=== PATIENT | male | born 1960 | race Hispanic/Latino ===

== ENCOUNTER 2021-05-20 06:04 | Day surgery (SDC) | payer BC ==
[2021-05-14 09:49] LABS: BASOPHILS % (AUTO) 0.8 % (0.0-5.0); EOSINOPHILS % (AUTO) 2.2 % (0.0-8.0); HEMATOCRIT 43.3 % (42-54); LYMPHOCYTES % (AUTO) 17.3 % (21.0-51.0); MEAN CORPUSCULAR HGB CONC 33.3 g/dL (32.0-36.0); MEAN CORPUSCULAR VOLUME 93.3 fL (79-99); MONOCYTES % (AUTO) 8.9 % (3.0-13.0); NEUTROPHILS % (AUTO) 70.5 % (40.0-77.0); PLATELET COUNT (AUTO) 339 K/uL (130-400); RED BLOOD CELL COUNT(AUTO) 4.64 MIL/uL (4.50-6.20); RED CELL DISTRIBUTION WIDTH 12.8 % (11.0-15.5); WHITE BLOOD COUNT (AUTO) 10.9 K/uL (4.8-10.8)
[2021-05-14 09:56] LABS: APPEARANCE,URINE Clear (CLEAR); BILIRUBIN,URINE Negative (NEGATIVE); COLOR,URINE Yellow (YELLOW); GLUCOSE, URINE (UA) Negative (NEGATIVE); KETONES,URINE Negative (NEGATIVE); LEUKOCYTE ESTERASE ,URINE Negative (NEGATIVE); NITRATE,URINE Negative (NEGATIVE); OCCULT BLOOD,URINE Moderate (NEGATIVE); PH,URINE 6.5 (5.0-8.0); PROTEIN,URINE Negative (NEGATIVE); UROBILINOGEN,URINE 0.2 mg/dL (0.2-1.0)
[2021-05-14 10:06] LABS: BACTERIA,URINE Rare /HPF (None Seen); HYALINE CASTS, URINE 0-1 /LPF (0-1 /LPF); RBC,URINE 0-1 /HPF (0-1); SQUAMOUS EPITHELIAL CELL,UR None Seen /HPF (0-2); WBC,URINE 0-1 /HPF (0-1)
[2021-05-14 10:08] LABS: INR 1.09 (0.85-1.15); PROTHROMBIN TIME 11.8 SEC (9.6-11.6)
[2021-05-14 10:09] LABS: PARTIAL THROMBOPLASTIN TIME 29.1 SEC (26.3-35.5)
[2021-05-14 10:10] LABS: CREATININE 1.1 mg/dL (0.5-1.5); POTASSIUM 4.8 mmol/L (3.5-5.1)
[2021-05-19 11:03] VITALS: BP 96/69
[~2021-05-20] VITALS: Ht 182.9 cm; Wt 95.7 kg
[2021-05-20] VITALS (11 sets, daily range): BP systolic 107–129; BP diastolic 75–87
[~2021-05-20 06:04] MED LIST: AEC81 PO; ATOR40TA69 PO; FURO20TA4 PO; LISI2.5T13 PO; METF-444 PO; TAMS-1 PO
[2021-05-20] MEDS ORDERED: 0.9%NACL 1000ML 1,000 ML IV ONE (06:19)
[2021-05-20] MEDS ORDERED: BIVALIRUDIN 250 MG/VIAL IV ONE (07:12)
[2021-05-20] MEDS ORDERED: HEPARIN 10,000 UNIT/10ML (1,000 UNIT/ML) VIAL ONE (07:12)
[2021-05-20] MEDS ORDERED: NITROGLYCERIN 2 MG VIAL IV ONE (07:12)
[2021-05-20] MEDS ORDERED: IOHEXOL-350 50ML VIAL IV ONE (07:13)
[2021-05-20] MEDS ORDERED: LIDOCAINE HCL 400MG/20ML VIAL ONE (07:13)
[2021-05-20] MEDS ORDERED: IOHEXOL 350 MG/ML 100ML INFUS..BTL IV ONE (07:13)
[2021-05-20] MEDS ORDERED: MIDAZOLAM HCL 1 MG/ML 2ML VIAL ONE (07:45)
[2021-05-20] MEDS ORDERED: FENTANYL CITRATE PF 50 MCG/1 ML 2ML VIAL ONE (07:45)
[2021-05-20] MEDS ORDERED: 0.9%NACL 1000ML 1,000 ML IV SCH (10:00)
[2021-05-20 13:55] LABS: HEMOGLOBIN A1C 7.1 % (4.0-6.0)
[2021-05-20 14:00] LABS: CHOLESTEROL 114 mg/dL (<200); HDL CHOLESTEROL 43 mg/dL (29-71); LDL DIRECT 51 mg/dL (0-99); TRIGLYCERIDES 63 mg/dL (30-200)
[2021-05-20 14:43] LABS: ABG BASE EXCESS -0.8 mmol/L (-2.0-3.0); ABG HCO3 23.5 mmol/L (21.0-28.0); ABG OXYGEN SATURATION 95.8 % (95.0-99.0); ABG PCO2 38 mmHg (35-48)
[2021-05-27] MEDS ORDERED: BICA50TA7 PO (16:31)
== END 2021-05-20 15:15 | disposition home or self-care (01) ==
LOC: DAH 06:04
PROVIDERS: ATTEND Internal Medicine Cardiovascular Disease
DX: I35.0 Nonrheumatic aortic (valve) stenosis (principal); I25.10 Atherosclerotic heart disease of native coronary artery without angina pectoris; I42.8 Other cardiomyopathies; E11.9 Type 2 diabetes mellitus without complications; E78.00 Pure hypercholesterolemia, unspecified; F17.210 Nicotine dependence, cigarettes, uncomplicated; Z90.89 Acquired absence of other organs; Z98.890 Other specified postprocedural states; Z80.42 Family history of malignant neoplasm of prostate; Z80.3 Family history of malignant neoplasm of breast; Z82.49 Family history of ischemic heart disease and other diseases of the circulatory system; Z85.46 Personal history of malignant neoplasm of prostate; Z79.01 Long term (current) use of anticoagulants; Z79.82 Long term (current) use of aspirin; Z79.84 Long term (current) use of oral hypoglycemic drugs; Z79.899 Other long term (current) drug therapy; Z95.2 Presence of prosthetic heart valve
CPT/HCPCS: 36415 ×2; 36600; 71045; 80048; 80061; 81001; 82803; 82948 ×2; 83036; 83880; 85025; 85610; 85730; 86850; 86900; 86901; 93005; 93456; 93880; 94010; A4215; A4216; A4221; A4222; A4223 ×3; A4606; A4663; C1760; C1769 ×2; C1893; C1894 ×3; J1644 ×3; J2250; J3010; J3490 ×2; J7030; Q9965; Q9967 ×2; 96360; 96361; 99156; 99157; J0583

== ENCOUNTER 2021-05-28 05:53 | Inpatient (IN) | payer BC ==
[2021-05-27 16:06] VITALS: BP 109/83
[~2021-05-28] VITALS: Ht 182.9 cm; Wt 96.6 kg
[2021-05-28] VITALS (42 sets, daily range): BP systolic 79–162; BP diastolic 46–86
[~2021-05-28 05:53] MED LIST changes: +BICA50TA7 PO
[2021-05-28] MEDS ORDERED: METOPROLOL TARTRATE 25 MG TAB PO ONE (06:00)
[2021-05-28] MEDS ORDERED: 0.9%NACL 1000ML 1,000 ML IV ONE (06:14)
[2021-05-28 06:35] LABS: BASOPHILS % (AUTO) 0.9 % (0.0-5.0); EOSINOPHILS % (AUTO) 6.4 % (0.0-8.0); HEMATOCRIT 35.3 % (42-54); LYMPHOCYTES % (AUTO) 28.1 % (21.0-51.0); MEAN CORPUSCULAR HEMOGLOBIN 31.5 pg (27.0-33.0); MEAN CORPUSCULAR HGB CONC 33.1 g/dL (32.0-36.0); MEAN CORPUSCULAR VOLUME 95.1 fL (79-99); MONOCYTES % (AUTO) 11.9 % (3.0-13.0); NEUTROPHILS % (AUTO) 52.3 % (40.0-77.0); PLATELET COUNT (AUTO) 279 K/uL (130-400); RED BLOOD CELL COUNT(AUTO) 3.71 MIL/uL (4.50-6.20); RED CELL DISTRIBUTION WIDTH 13.2 % (11.0-15.5); WHITE BLOOD COUNT (AUTO) 8.9 K/uL (4.8-10.8)
[2021-05-28 06:55] LABS: PROTHROMBIN TIME 10.9 SEC (9.6-11.6)
[2021-05-28 06:57] LABS: PARTIAL THROMBOPLASTIN TIME 26.3 SEC (26.3-35.5)
[2021-05-28 07:00] LABS: ALBUMIN 4.1 g/dL (3.5-5.0); BILIRUBIN,TOTAL 0.5 mg/dL (0.2-1.0); CREATININE 0.9 mg/dL (0.5-1.5); POTASSIUM 4.8 mmol/L (3.5-5.1); TOTAL PROTEIN, SERUM 7.5 g/dL (6.0-8.3)
[2021-05-28] MEDS ORDERED: EPINEPHRINE PF 1MG AMP 10 MG in 0.9% NACL 250ML 240 ML IV PRN (07:00)
[2021-05-28] MEDS ORDERED: AMINOCAPROIC ACID 5,000MG VIAL 15,000 MG in 0.9% NACL 500ML IV.SOLN 420 ML IV PRN (07:00)
[2021-05-28] MEDS ORDERED: NOREPINEPHRINE BITARTRATE 8 MG in DEXTROSE 5%-WATER 250 ML IV PRN (07:00)
[2021-05-28] MEDS: CEFAZOLIN SODIUM 1 GM VIAL IVP SCH ×2 (08:41→10:00)
[2021-05-28] MEDS ORDERED: DELNIDO FORMULA 1 BAG IV ONE (09:42)
[2021-05-28] MEDS ORDERED: NOREPINEPHRINE BITARTRATE 1 MG/1 ML ML IV ONE ×2 (09:45→15:52)
[2021-05-28] MEDS ORDERED: EPINEPHRINE PF 1MG AMP ONE (09:45)
[2021-05-28] MEDS ORDERED: LIDOCAINE PF 100MG/5ML (2%) SYRINGE 5ML ONE ×3 (09:45→11:46)
[2021-05-28] MEDS ORDERED: ESMOLOL HCL 10 MG/ML 10 ML VIAL ONE (09:45)
[2021-05-28] MEDS ORDERED: HEPARIN 10,000 UNIT/10ML (1,000 UNIT/ML) VIAL ONE (09:45)
[2021-05-28] MEDS ORDERED: SODIUM BICARB 50MEQ 50ML VIAL 150 ML ONE (09:45)
[2021-05-28] MEDS ORDERED: AMINOCAPROIC ACID 5,000MG VIAL ONE (09:45)
[2021-05-28] MEDS ORDERED: PROTAMINE SULFATE 10 MG/ML 25ML VIAL IV ONE (09:45)
[2021-05-28] MEDS ORDERED: FENTANYL CITRATE PF 50 MCG/1 ML 20ML VIAL IJ ONE (09:46)
[2021-05-28] MEDS ORDERED: MIDAZOLAM HCL 1 MG/ML 2ML VIAL ONE (09:46)
[2021-05-28] MEDS ORDERED: PROPOFOL 10 MG/ML 20ML VIAL IV ONE (09:46)
[2021-05-28] MEDS ORDERED: ROCURONIUM 10MG/1ML SYR 10 MG/ML ML ONE (09:46)
[2021-05-28] MEDS ORDERED: KETAMINE 50MG/ML SYRINGE 50 MG/ML DISP.SYRIN IV ONE (09:50)
[2021-05-28 10:27] LABS: ABG BASE EXCESS 1.6 mmol/L (-2.0-3.0); ABG HCO3 24.6 mmol/L (21.0-28.0); ABG OXYGEN SATURATION 99.4 % (95.0-99.0); ABG PCO2 33 mmHg (35-48)
[2021-05-28] MEDS ORDERED: OCTYL 2-CYANOACRYLATE 1 EACH TP ONE (10:29)
[2021-05-28] MEDS ORDERED: PAPAVERINE HCL 30 MG/ML 2ML VIAL ONE (10:29)
[2021-05-28] MEDS ORDERED: CEFAZOLIN SODIUM 1 GM VIAL ONE ×2 (10:29→13:53)
[2021-05-28 12:19] LABS: ABG BASE EXCESS -6.8 mmol/L (-2.0-3.0); ABG HCO3 21.1 mmol/L (21.0-28.0); ABG OXYGEN SATURATION 97.9 % (95.0-99.0); ABG PCO2 55 mmHg (35-48)
[2021-05-28 12:50] LABS: ABG BASE EXCESS -2.8 mmol/L (-2.0-3.0); ABG HCO3 21.6 mmol/L (21.0-28.0); ABG OXYGEN SATURATION 98.7 % (95.0-99.0); ABG PCO2 36 mmHg (35-48)
[2021-05-28] MEDS ORDERED: GLYCOPYRROLATE 1 MG/5 ML SYRINGE ONE (13:08)
[2021-05-28 13:15] LABS: ABG BASE EXCESS -4.4 mmol/L (-2.0-3.0); ABG HCO3 20.3 mmol/L (21.0-28.0); ABG OXYGEN SATURATION 98.7 % (95.0-99.0); ABG PCO2 36 mmHg (35-48)
[2021-05-28] MEDS ORDERED: EPHEDRINE SULFATE 50 MG/ML AMPULE ONE (13:15)
[2021-05-28] MEDS ORDERED: VASOPRESSIN 20 UNITS/ML 1ML VIAL ONE (13:20)
[2021-05-28] MEDS ORDERED: ONDANSETRON 4MG INJ IV PRN (13:30)
[2021-05-28] MEDS ORDERED: PROPOFOL 1000 MG/100 ML 100 ML IV PRN (13:30)
[2021-05-28] MEDS ORDERED: EPINEPHRINE PF 1MG AMP 10 MG in DEXTROSE 5%-WATER 250 ML IV PRN (13:30)
[2021-05-28] MEDS ORDERED: MORPHINE 4 MG SYG IV PRN (13:30)
[2021-05-28] MEDS ORDERED: 0.9%NACL 1000ML 1,000 ML IV SCH (13:30)
[2021-05-28] MEDS ORDERED: ALBUMIN (HUMAN) 5% 250 ML IV PRN (13:30)
[2021-05-28] MEDS ORDERED: MORPHINE 2 MG SYG IV PRN (13:30)
[2021-05-28] MEDS ORDERED: AMINOCAPROIC ACID 5,000MG VIAL 15,000 MG in 0.9% NACL 250ML 250 ML IV SCH (13:30)
[2021-05-28] MEDS ORDERED: TRAMADOL HCL 50 MG TABLET PO PRN (13:30)
[2021-05-28] MEDS ORDERED: NITROGLYCERIN 50MG/D5W 250ML 250 BOT IV SCH (13:30)
[2021-05-28] MEDS ORDERED: 0.9%NACL 10ML VIAL IVP PRN (13:30)
[2021-05-28] MEDS ORDERED: DEXTROSE 50%-WATER 50 ML DISP.SYRIN IV PRN (13:30)
[2021-05-28] MEDS ORDERED: INSULIN REGULAR, HUMAN 3ML 100 UNIT in 0.9%NACL 100ML 99 ML IV SCH ×2 (13:30)
[2021-05-28] MEDS ORDERED: ACETAMINOPHEN 650 MG SUPPOSITORY RC PRN (13:30)
[2021-05-28] MEDS ORDERED: SODIUM BICARB 50MEQ 50ML VIAL IV PRN (13:30)
[2021-05-28] MEDS ORDERED: GLUCAGON 1MG KIT 1 MG ML IM PRN (13:30)
[2021-05-28] MEDS ORDERED: POTASSIUM PHOS 15 mMOL+NS250ML 250 ML IV PRN (13:30)
[2021-05-28] MEDS ORDERED: 0.9% NACL 500ML IV.SOLN 500 ML IV SCH (13:30)
[2021-05-28] MEDS ORDERED: NOREPINEPHRIN 4MG/NS 250ML 250 ML IV PRN (13:30)
[2021-05-28 14:13] LABS: ABG BASE EXCESS -3.9 mmol/L (-2.0-3.0); ABG HCO3 22.5 mmol/L (21.0-28.0); ABG OXYGEN SATURATION 97.3 % (95.0-99.0); ABG PCO2 48 mmHg (35-48)
[2021-05-28 14:19] LABS: MEAN CORPUSCULAR HEMOGLOBIN 31.4 pg (27.0-33.0); PLATELET COUNT (AUTO) 144 K/uL (130-400); RED BLOOD CELL COUNT(AUTO) 2.42 MIL/uL (4.50-6.20)
[2021-05-28 14:23] LABS: WHITE BLOOD COUNT (AUTO) 31.2 K/uL (4.8-10.8)
[2021-05-28 14:35] LABS: INR 1.24 (0.85-1.15); PROTHROMBIN TIME 13.3 SEC (9.6-11.6)
[2021-05-28 14:36] LABS: PARTIAL THROMBOPLASTIN TIME 33.4 SEC (26.3-35.5)
[2021-05-28 14:41] LABS: MAGNESIUM 2.5 mg/dL (1.80-2.40); PHOSPHORUS 2.5 mg/dL (2.5-4.9); POTASSIUM 3.6 mmol/L (3.5-5.1)
[2021-05-28 14:56] LABS: BAND NEUTROPHILS % (MANUAL) 22 % (0-2); LYMPHOCYTES % (MANUAL) 11 % (22-44); MAN.DIFF COMMENT-IMPRESSION MANUAL DIFFERENTIAL; MONOCYTES % (MANUAL) 2 % (2-9); SEGMENTED NEUTROPHILS % 65 % (40-70)
[2021-05-28 15:38] LABS: ABG BASE EXCESS -0.9 mmol/L (-2.0-3.0); ABG HCO3 24.4 mmol/L (21.0-28.0); ABG OXYGEN SATURATION 98.4 % (95.0-99.0); ABG PCO2 43 mmHg (35-48)
[2021-05-28] MEDS ORDERED: PHENYLEPHRINE HCL 10 MG/ML 1ML VIAL IV ONE (15:52)
[2021-05-28] MEDS ORDERED: MAGNESIUM SULFATE 1 GM/2 ML VIAL IM ONE (15:52)
[2021-05-28] MEDS ORDERED: CACL 1GM SYG IVP ONE (15:52)
[2021-05-28] MEDS ORDERED: SODIUM BICARB 8.4% 50ML SYRINGE IVP ONE (15:52)
[2021-05-28] MEDS ORDERED: AMINOCAPROIC ACID 5,000MG VIAL IV ONE (15:52)
[2021-05-28] MEDS ORDERED: HEPARIN 10,000 UNIT/10ML (1,000 UNIT/ML) VIAL IV ONE (15:52)
[2021-05-28] MEDS ORDERED: ALBUMIN (HUMAN) 25% 50 ML IV ONE (15:52)
[2021-05-28] MEDS ORDERED: LIDOCAINE PF 100MG/5ML (2%) SYRINGE 5ML IVP ONE (15:52)
[2021-05-28 16:54] LABS: ABG BASE EXCESS -3.1 mmol/L (-2.0-3.0); ABG HCO3 22.5 mmol/L (21.0-28.0); ABG OXYGEN SATURATION 97.5 % (95.0-99.0); ABG PCO2 42 mmHg (35-48)
[2021-05-28 18:24] LABS: ABG BASE EXCESS 1.4 mmol/L (-2.0-3.0); ABG HCO3 26.1 mmol/L (21.0-28.0); ABG OXYGEN SATURATION 95.8 % (95.0-99.0); ABG PCO2 42 mmHg (35-48)
[2021-05-28] MEDS ORDERED: CEFAZOLIN SODIUM 1 GM VIAL IV SCH (18:30)
[2021-05-28 18:45] LABS: HEMATOCRIT 26.8 % (42-54)
[2021-05-28] MEDS ORDERED: PHARMACY COMMUNICATION MISC SCH ×3 (19:30→20:00)
[2021-05-28] MEDS: CALCIUM GLUC 1GM 1 GM in 0.9%NACL 50ML 50 ML IV PRN ×3 (19:53→23:52)
[2021-05-28 20:03] LABS: ABG BASE EXCESS 0.3 mmol/L (-2.0-3.0); ABG HCO3 24.5 mmol/L (21.0-28.0); ABG OXYGEN SATURATION 94.2 % (95.0-99.0); ABG PCO2 38 mmHg (35-48)
[2021-05-28] MEDS: FAMOTIDINE 20MG VIAL IV SCH (20:13)
[2021-05-28] MEDS: POTASSIUM CHLORIDE 20MEQ/100ML 100 ML IV PRN (20:23)
[2021-05-28] MEDS: ACETAMINOPHEN 325 MG TAB PO PRN (20:58)
[2021-05-28] MEDS: FUROSEMIDE 20MG VIAL IV SCH (21:00)
[2021-05-28] MEDS ORDERED: ALBUMIN (HUMAN) 5% 250 ML IV ONE (21:38)
[2021-05-28] MEDS: CEFAZOLIN SODIUM 1 GM VIAL IV SCH (21:45)
[2021-05-28] MEDS ORDERED: NOREPINEPHRINE 8MG/NS 250ML PREMIX IV SCH (22:00)
[2021-05-28 23:28] LABS: ABG BASE EXCESS 1.2 mmol/L (-2.0-3.0); ABG HCO3 24.9 mmol/L (21.0-28.0); ABG OXYGEN SATURATION 98.2 % (95.0-99.0); ABG PCO2 36 mmHg (35-48)
[2021-05-29] VITALS (47 sets, daily range): BP systolic 87–142; BP diastolic 42–97
[2021-05-29] MEDS: ACETAMINOPHEN 325 MG TAB PO PRN ×2 (01:16→05:17)
[2021-05-29] MEDS: TRAMADOL HCL 50 MG TABLET PO PRN (01:50)
[2021-05-29 04:04] LABS: ABG BASE EXCESS 1.5 mmol/L (-2.0-3.0); ABG HCO3 25.1 mmol/L (21.0-28.0); ABG OXYGEN SATURATION 97.5 % (95.0-99.0); ABG PCO2 35 mmHg (35-48)
[2021-05-29] MEDS: CALCIUM GLUC 1GM 1 GM in 0.9%NACL 50ML 50 ML IV PRN ×3 (04:15→16:40)
[2021-05-29 04:19] LABS: HEMATOCRIT 21.7 % (42-54); MEAN CORPUSCULAR HEMOGLOBIN 31.5 pg (27.0-33.0); MEAN CORPUSCULAR HGB CONC 34.1 g/dL (32.0-36.0); MEAN CORPUSCULAR VOLUME 92.3 fL (79-99); RED BLOOD CELL COUNT(AUTO) 2.35 MIL/uL (4.50-6.20); RED CELL DISTRIBUTION WIDTH 14.5 % (11.0-15.5); WHITE BLOOD COUNT (AUTO) 18.3 K/uL (4.8-10.8)
[2021-05-29 04:28] LABS: INR 1.19 (0.85-1.15); PROTHROMBIN TIME 12.8 SEC (9.6-11.6)
[2021-05-29 04:38] LABS: CREATININE 0.9 mg/dL (0.5-1.5); MAGNESIUM 1.8 mg/dL (1.80-2.40); POTASSIUM 4.6 mmol/L (3.5-5.1)
[2021-05-29] MEDS: MAGNESIUM 2GM PREMIX 50ML 50 ML IV PRN (04:41)
[2021-05-29] MEDS: CEFAZOLIN SODIUM 1 GM VIAL IV SCH ×2 (05:18→14:59)
[2021-05-29] MEDS: ASPIRIN 81 MG EC TAB PO SCH (08:03)
[2021-05-29] MEDS: TAMSULOSIN HCL 0.4 MG CAP.ER.24H PO SCH (08:03)
[2021-05-29] MEDS: ATORVASTATIN 40 MG TABLET PO SCH (08:03)
[2021-05-29] MEDS: FAMOTIDINE 20MG VIAL IV SCH ×2 (08:04→20:13)
[2021-05-29] MEDS: FUROSEMIDE 20MG VIAL IV SCH ×2 (08:04→20:13)
[2021-05-29 15:42] LABS: MAGNESIUM 2.1 mg/dL (1.80-2.40); POTASSIUM 4.2 mmol/L (3.5-5.1)
[2021-05-29] MEDS ORDERED: CALCIUM GLUC 1GM/10ML VIAL ONE (15:47)
[2021-05-29] MEDS: INSULIN HUMULIN R 100 UNIT/ML 3ML SQ SCH (20:55)
[2021-05-30] VITALS (27 sets, daily range): BP systolic 88–156; BP diastolic 41–85
[2021-05-30 01:43] LABS: HEMATOCRIT 21.4 % (42-54); MEAN CORPUSCULAR HEMOGLOBIN 32.3 pg (27.0-33.0); MEAN CORPUSCULAR HGB CONC 34.6 g/dL (32.0-36.0); MEAN CORPUSCULAR VOLUME 93.4 fL (79-99); RED BLOOD CELL COUNT(AUTO) 2.29 MIL/uL (4.50-6.20); RED CELL DISTRIBUTION WIDTH 15.3 % (11.0-15.5); WHITE BLOOD COUNT (AUTO) 21.9 K/uL (4.8-10.8)
[2021-05-30 01:44] LABS: ABG BASE EXCESS 0.4 mmol/L (-2.0-3.0); ABG HCO3 23.8 mmol/L (21.0-28.0); ABG PCO2 33 mmHg (35-48)
[2021-05-30 01:45] LABS: ABG OXYGEN SATURATION 94.6 % (95.0-99.0)
[2021-05-30 01:53] LABS: MAGNESIUM 1.9 mg/dL (1.80-2.40); POTASSIUM 4.5 mmol/L (3.5-5.1)
[2021-05-30] MEDS ORDERED: COAGULATION FACTOR VIIA RECOMB 1 MG VIAL IV STA (02:21)
[2021-05-30] MEDS ORDERED: HUMAN PROTHROMBIN COMPLX(PCC) 500 UNIT KIT IV ONE (02:44)
[2021-05-30 05:02] LABS: HEMATOCRIT 24.3 % (42-54); MEAN CORPUSCULAR HEMOGLOBIN 30.9 pg (27.0-33.0); MEAN CORPUSCULAR HGB CONC 33.7 g/dL (32.0-36.0); MEAN CORPUSCULAR VOLUME 91.7 fL (79-99); RED BLOOD CELL COUNT(AUTO) 2.65 MIL/uL (4.50-6.20); RED CELL DISTRIBUTION WIDTH 15.5 % (11.0-15.5); WHITE BLOOD COUNT (AUTO) 23.2 K/uL (4.8-10.8)
[2021-05-30 05:11] LABS: CREATININE 0.8 mg/dL (0.5-1.5); POTASSIUM 4.5 mmol/L (3.5-5.1)
[2021-05-30] MEDS ORDERED: CALCIUM GLUC 1GM/10ML VIAL ONE ×5 (06:01→22:37)
[2021-05-30] MEDS: CALCIUM GLUC 1GM 1 GM in 0.9%NACL 50ML 50 ML IV PRN ×4 (06:06→23:46)
[2021-05-30] MEDS: MAGNESIUM 2GM PREMIX 50ML 50 ML IV PRN (06:14)
[2021-05-30] MEDS: INSULIN HUMULIN R 100 UNIT/ML 3ML SQ SCH ×4 (06:21→21:18)
[2021-05-30 08:04] LABS: HEMATOCRIT 24.9 % (42-54); MEAN CORPUSCULAR HEMOGLOBIN 31.5 pg (27.0-33.0); MEAN CORPUSCULAR HGB CONC 34.1 g/dL (32.0-36.0); MEAN CORPUSCULAR VOLUME 92.2 fL (79-99); RED BLOOD CELL COUNT(AUTO) 2.7 MIL/uL (4.50-6.20); RED CELL DISTRIBUTION WIDTH 15.8 % (11.0-15.5); WHITE BLOOD COUNT (AUTO) 23.9 K/uL (4.8-10.8)
[2021-05-30] MEDS ORDERED: LIDOCAINE HCL MPF 1% 5ML VIAL ONE ×2 (08:33→11:04)
[2021-05-30] MEDS: FUROSEMIDE 20 MG TABLET PO SCH ×2 (09:09→17:00)
[2021-05-30] MEDS: FAMOTIDINE 20MG VIAL IV SCH ×2 (09:09→21:09)
[2021-05-30] MEDS: METOPROLOL TARTRATE 25 MG TAB PO SCH ×2 (09:09→20:31)
[2021-05-30] MEDS: ASPIRIN 81 MG EC TAB PO SCH (09:09)
[2021-05-30] MEDS: TAMSULOSIN HCL 0.4 MG CAP.ER.24H PO SCH (09:09)
[2021-05-30] MEDS: ATORVASTATIN 40 MG TABLET PO SCH (09:09)
[2021-05-30] MEDS ORDERED: FAMOTIDINE 20MG TAB ONE (09:16)
[2021-05-30] MEDS: BICALUTAMIDE 50 MG PO SCH (09:23)
[2021-05-30 11:40] LABS: HEMATOCRIT 25.9 % (42-54); MEAN CORPUSCULAR HEMOGLOBIN 31.5 pg (27.0-33.0); MEAN CORPUSCULAR HGB CONC 33.6 g/dL (32.0-36.0); MEAN CORPUSCULAR VOLUME 93.8 fL (79-99); PLATELET COUNT (AUTO) 121 K/uL (130-400); RED BLOOD CELL COUNT(AUTO) 2.76 MIL/uL (4.50-6.20); RED CELL DISTRIBUTION WIDTH 15.9 % (11.0-15.5); WHITE BLOOD COUNT (AUTO) 23.3 K/uL (4.8-10.8)
[2021-05-30 12:26] LABS: LYMPHOCYTES % (MANUAL) 11 % (22-44); MONOCYTES % (MANUAL) 3 % (2-9); SEGMENTED NEUTROPHILS % 86 % (40-70)
[2021-05-30 12:27] LABS: MAN.DIFF COMMENT-IMPRESSION MANUAL DIFFERENTIAL
[2021-05-30 12:28] LABS: PLATELET MORPHOLOGY COMMENT ADEQUATE
[2021-05-30 15:30] LABS: HEMATOCRIT 26.9 % (42-54); MEAN CORPUSCULAR HEMOGLOBIN 30.9 pg (27.0-33.0); MEAN CORPUSCULAR HGB CONC 34.2 g/dL (32.0-36.0); MEAN CORPUSCULAR VOLUME 90.3 fL (79-99); PLATELET COUNT (AUTO) 114 K/uL (130-400); RED BLOOD CELL COUNT(AUTO) 2.98 MIL/uL (4.50-6.20); RED CELL DISTRIBUTION WIDTH 15.7 % (11.0-15.5); WHITE BLOOD COUNT (AUTO) 22.8 K/uL (4.8-10.8)
[2021-05-30] MEDS ORDERED: HUMAN PROTHROMBIN COMPLX(PCC) 500 UNIT KIT IV SCH (16:00)
[2021-05-30 16:01] LABS: LYMPHOCYTES % (MANUAL) 19 % (22-44); MAN.DIFF COMMENT-IMPRESSION MANUAL DIFFERENTIAL; MONOCYTES % (MANUAL) 6 % (2-9); SEGMENTED NEUTROPHILS % 75 % (40-70)
[2021-05-30] MEDS ORDERED: FUROSEMIDE 20MG VIAL ONE (16:09)
[2021-05-30 16:12] LABS: INR 1.05 (0.85-1.15); PROTHROMBIN TIME 11.4 SEC (9.6-11.6)
[2021-05-30 16:13] LABS: PARTIAL THROMBOPLASTIN TIME 29.1 SEC (26.3-35.5)
[2021-05-30 17:17] LABS: CREATININE 0.9 mg/dL (0.5-1.5); POTASSIUM 4.1 mmol/L (3.5-5.1)
[2021-05-30 17:20] LABS: PHOSPHORUS 2.2 mg/dL (2.5-4.9)
[2021-05-30] MEDS: POTASSIUM CHLORIDE 20MEQ/100ML 100 ML IV PRN (17:58)
[2021-05-30] MEDS ORDERED: AMIODARONE 150MG VIAL 150 MG in DEXTROSE 5%-WATER 100 ML IV SCH (19:00)
[2021-05-30] MEDS ORDERED: AMIODARONE 900MG VIAL 360 MG in DEXTROSE 5%-WATER 200 ML IV SCH (19:00)
[2021-05-30 19:09] LABS: HEMATOCRIT 27.8 % (42-54); MEAN CORPUSCULAR HEMOGLOBIN 31.3 pg (27.0-33.0); MEAN CORPUSCULAR HGB CONC 34.5 g/dL (32.0-36.0); MEAN CORPUSCULAR VOLUME 90.6 fL (79-99); PLATELET COUNT (AUTO) 114 K/uL (130-400); RED BLOOD CELL COUNT(AUTO) 3.07 MIL/uL (4.50-6.20); RED CELL DISTRIBUTION WIDTH 15.8 % (11.0-15.5); WHITE BLOOD COUNT (AUTO) 23.7 K/uL (4.8-10.8)
[2021-05-30 19:15] LABS: BASOPHILS % (AUTO) 0.2 % (0.0-5.0); LYMPHOCYTES % (AUTO) 9.1 % (21.0-51.0); MONOCYTES % (AUTO) 8.3 % (3.0-13.0); NEUTROPHILS % (AUTO) 81.1 % (40.0-77.0)
[2021-05-30] MEDS: TRAMADOL HCL 50 MG TABLET PO PRN (23:35)
[2021-05-30] MEDS ORDERED: 0.9%NACL 50ML 50 ML IV ONE (23:43)
[2021-05-31] VITALS (25 sets, daily range): BP systolic 102–164; BP diastolic 51–98
[2021-05-31] MEDS ORDERED: AMIODARONE 900MG VIAL 540 MG in DEXTROSE 5%-WATER 300 ML IV SCH (01:00)
[2021-05-31 05:25] LABS: MEAN CORPUSCULAR HEMOGLOBIN 30.8 pg (27.0-33.0); MEAN CORPUSCULAR HGB CONC 33.8 g/dL (32.0-36.0); MEAN CORPUSCULAR VOLUME 90.9 fL (79-99); RED BLOOD CELL COUNT(AUTO) 2.86 MIL/uL (4.50-6.20); RED CELL DISTRIBUTION WIDTH 15.4 % (11.0-15.5); WHITE BLOOD COUNT (AUTO) 20.5 K/uL (4.8-10.8)
[2021-05-31 05:35] LABS: CREATININE 0.7 mg/dL (0.5-1.5); POTASSIUM 3.9 mmol/L (3.5-5.1)
[2021-05-31] MEDS: INSULIN HUMULIN R 100 UNIT/ML 3ML SQ SCH ×4 (05:52→20:34)
[2021-05-31] MEDS: BICALUTAMIDE 50 MG PO SCH (09:00)
[2021-05-31] MEDS ORDERED: ENOXAPARIN SODIUM 30 MG/0.3 ML SQ SCH (09:00)
[2021-05-31] MEDS: METOPROLOL TARTRATE 25 MG TAB PO SCH ×2 (09:00→20:55)
[2021-05-31] MEDS: FAMOTIDINE 20MG VIAL IV SCH ×2 (09:54→20:55)
[2021-05-31] MEDS: FUROSEMIDE 20 MG TABLET PO SCH ×2 (09:54→16:39)
[2021-05-31] MEDS: ATORVASTATIN 40 MG TABLET PO SCH (09:54)
[2021-05-31] MEDS: TAMSULOSIN HCL 0.4 MG CAP.ER.24H PO SCH (09:54)
[2021-05-31] MEDS: ASPIRIN 81 MG EC TAB PO SCH (09:54)
[2021-05-31] MEDS: AMIODARONE 200 MG TABLET PO SCH (20:55)
[2021-05-31] MEDS: TRAMADOL HCL 50 MG TABLET PO PRN (23:53)
[2021-06-01] VITALS (15 sets, daily range): BP systolic 99–128; BP diastolic 50–96
[2021-06-01 04:12] LABS: HEMATOCRIT 27.9 % (42-54); MEAN CORPUSCULAR HEMOGLOBIN 30.3 pg (27.0-33.0); MEAN CORPUSCULAR VOLUME 91.8 fL (79-99); RED BLOOD CELL COUNT(AUTO) 3.04 MIL/uL (4.50-6.20); RED CELL DISTRIBUTION WIDTH 14.8 % (11.0-15.5); WHITE BLOOD COUNT (AUTO) 15.4 K/uL (4.8-10.8)
[2021-06-01 04:25] LABS: INR 1.04 (0.85-1.15); PROTHROMBIN TIME 11.3 SEC (9.6-11.6)
[2021-06-01 04:27] LABS: PARTIAL THROMBOPLASTIN TIME 31.1 SEC (26.3-35.5)
[2021-06-01 04:31] LABS: CREATININE 0.8 mg/dL (0.5-1.5); POTASSIUM 3.9 mmol/L (3.5-5.1)
[2021-06-01] MEDS: INSULIN HUMULIN R 100 UNIT/ML 3ML SQ SCH ×4 (07:30→20:12)
[2021-06-01 07:52] LABS: ABG BASE EXCESS 3.2 mmol/L (-2.0-3.0); ABG OXYGEN SATURATION 93.6 % (95.0-99.0); ABG PCO2 44 mmHg (35-48)
[2021-06-01 07:52] LABS: ABG OXYGEN SATURATION 98.9 % (95.0-99.0); ABG PCO2 46 mmHg (35-48)
[2021-06-01 07:52] LABS: ABG BASE EXCESS 5.8 mmol/L (-2.0-3.0); ABG HCO3 31.1 mmol/L (21.0-28.0); ABG OXYGEN SATURATION 82.1 % (95.0-99.0); ABG PCO2 49 mmHg (35-48)
[2021-06-01 07:52] LABS: ABG BASE EXCESS 3.1 mmol/L (-2.0-3.0); ABG HCO3 26.9 mmol/L (21.0-28.0); ABG OXYGEN SATURATION 98.8 % (95.0-99.0); ABG PCO2 38 mmHg (35-48)
[2021-06-01 07:53] LABS: ABG HCO3 27.7 mmol/L (21.0-28.0); ABG OXYGEN SATURATION 94.9 % (95.0-99.0); ABG PCO2 43 mmHg (35-48)
[2021-06-01 07:53] LABS: ABG BASE EXCESS 0.4 mmol/L (-2.0-3.0); ABG HCO3 23.8 mmol/L (21.0-28.0); ABG OXYGEN SATURATION 94.6 % (95.0-99.0); ABG PCO2 33 mmHg (35-48)
[2021-06-01 07:53] LABS: ABG BASE EXCESS 2.3 mmol/L (-2.0-3.0); ABG HCO3 25.9 mmol/L (21.0-28.0); ABG OXYGEN SATURATION 91.9 % (95.0-99.0); ABG PCO2 37 mmHg (35-48)
[2021-06-01 07:53] LABS: ABG HCO3 28.3 mmol/L (21.0-28.0); ABG OXYGEN SATURATION 98.7 % (95.0-99.0); ABG PCO2 47 mmHg (35-48)
[2021-06-01 07:53] LABS: ABG BASE EXCESS 3.5 mmol/L (-2.0-3.0); ABG HCO3 28.5 mmol/L (21.0-28.0); ABG OXYGEN SATURATION 97.9 % (95.0-99.0); ABG PCO2 45 mmHg (35-48)
[2021-06-01 07:53] LABS: ABG BASE EXCESS 3.2 mmol/L (-2.0-3.0); ABG HCO3 27.3 mmol/L (21.0-28.0); ABG OXYGEN SATURATION 98.9 % (95.0-99.0); ABG PCO2 40 mmHg (35-48)
[2021-06-01 07:54] LABS: ABG BASE EXCESS 4.9 mmol/L (-2.0-3.0); ABG HCO3 29.3 mmol/L (21.0-28.0); ABG PCO2 43 mmHg (35-48)
[2021-06-01] MEDS: AMIODARONE 200 MG TABLET PO SCH ×2 (08:46→20:03)
[2021-06-01] MEDS: ASPIRIN 81 MG EC TAB PO SCH (08:46)
[2021-06-01] MEDS: ATORVASTATIN 40 MG TABLET PO SCH (08:47)
[2021-06-01] MEDS: METOPROLOL TARTRATE 25 MG TAB PO SCH ×2 (08:47→20:04)
[2021-06-01] MEDS: FUROSEMIDE 20 MG TABLET PO SCH (08:47)
[2021-06-01] MEDS: TAMSULOSIN HCL 0.4 MG CAP.ER.24H PO SCH (08:47)
[2021-06-01] MEDS: FAMOTIDINE 20MG TAB PO SCH ×2 (08:47→20:04)
[2021-06-01] MEDS: BICALUTAMIDE 50 MG PO SCH (08:48)
[2021-06-01] MEDS ORDERED: POTASSIUM CHLORIDE 10% ELIXIR 20 MEQ/15 ML UDCUP PO PRN (10:30)
[2021-06-01] MEDS ORDERED: LIDOCAINE HCL-MPF 1% 2ML VIAL IV PRN (10:30)
[2021-06-01] MEDS ORDERED: POTASSIUM CHLORIDE 20MEQ/100ML 100 ML IV PRN (10:30)
[2021-06-01] MEDS ORDERED: KCL 20 MEQ ERTAB PO PRN (10:30)
[2021-06-01] MEDS ORDERED: FUROSEMIDE 20MG VIAL ONE (10:33)
[2021-06-01] MEDS: FUROSEMIDE 20MG VIAL IV SCH ×2 (10:43→20:03)
[2021-06-01] MEDS: TRAMADOL HCL 50 MG TABLET PO PRN ×2 (10:43→20:05)
[2021-06-01] MEDS: POTASSIUM CHLORIDE 10MEQ SR TAB PO SCH ×2 (12:23→20:05)
[2021-06-02] MEDS: FUROSEMIDE 20MG VIAL IV SCH ×3 (05:30→20:42)
[2021-06-02] MEDS: POTASSIUM CHLORIDE 10MEQ SR TAB PO SCH ×3 (05:30→20:41)
[2021-06-02 05:54] LABS: HEMATOCRIT 28.3 % (42-54); MEAN CORPUSCULAR HEMOGLOBIN 30.2 pg (27.0-33.0); MEAN CORPUSCULAR HGB CONC 32.9 g/dL (32.0-36.0); MEAN CORPUSCULAR VOLUME 91.9 fL (79-99); RED BLOOD CELL COUNT(AUTO) 3.08 MIL/uL (4.50-6.20); RED CELL DISTRIBUTION WIDTH 14.6 % (11.0-15.5); WHITE BLOOD COUNT (AUTO) 12.4 K/uL (4.8-10.8)
[2021-06-02] MEDS: INSULIN HUMULIN R 100 UNIT/ML 3ML SQ SCH ×4 (06:09→20:43)
[2021-06-02 06:10] VITALS: BP 105/65
[2021-06-02 06:26] LABS: CREATININE 0.8 mg/dL (0.5-1.5); POTASSIUM 3.6 mmol/L (3.5-5.1)
[2021-06-02 07:27] VITALS: BP 110/62
[2021-06-02 09:49] LABS: INR 1.05 (0.85-1.15); PROTHROMBIN TIME 11.4 SEC (9.6-11.6)
[2021-06-02] MEDS: TAMSULOSIN HCL 0.4 MG CAP.ER.24H PO SCH (10:21)
[2021-06-02] MEDS: ATORVASTATIN 40 MG TABLET PO SCH (10:21)
[2021-06-02] MEDS: BICALUTAMIDE 50 MG PO SCH (10:21)
[2021-06-02] MEDS: AMIODARONE 200 MG TABLET PO SCH ×2 (10:21→20:42)
[2021-06-02] MEDS: FAMOTIDINE 20MG TAB PO SCH ×2 (10:21→20:42)
[2021-06-02] MEDS: METOPROLOL TARTRATE 25 MG TAB PO SCH ×2 (10:21→20:41)
[2021-06-02] MEDS: ASPIRIN 81 MG EC TAB PO SCH (10:21)
[2021-06-02 11:11] VITALS: BP 98/72
[2021-06-02 15:15] VITALS: BP 113/58
[2021-06-02] MEDS ORDERED: WARFARIN SODIUM 2.5 MG TAB PO SCH (17:00)
[2021-06-02] MEDS ORDERED: WARFARIN SODIUM 5 MG TAB PO SCH (17:00)
[2021-06-02 19:54] VITALS: BP 130/79
[2021-06-03 04:03] LABS: HEMATOCRIT 27.4 % (42-54); MEAN CORPUSCULAR HEMOGLOBIN 30.9 pg (27.0-33.0); MEAN CORPUSCULAR HGB CONC 33.6 g/dL (32.0-36.0); MEAN CORPUSCULAR VOLUME 91.9 fL (79-99); RED BLOOD CELL COUNT(AUTO) 2.98 MIL/uL (4.50-6.20); RED CELL DISTRIBUTION WIDTH 14.6 % (11.0-15.5)
[2021-06-03 04:11] LABS: CREATININE 0.8 mg/dL (0.5-1.5); POTASSIUM 3.8 mmol/L (3.5-5.1)
[2021-06-03 04:43] LABS: INR 1.07 (0.85-1.15); PROTHROMBIN TIME 11.6 SEC (9.6-11.6)
[2021-06-03 04:44] LABS: PARTIAL THROMBOPLASTIN TIME 28.6 SEC (26.3-35.5)
[2021-06-03] MEDS: FUROSEMIDE 20MG VIAL IV SCH (05:31)
[2021-06-03] MEDS: POTASSIUM CHLORIDE 10MEQ SR TAB PO SCH (05:31)
[2021-06-03] MEDS: INSULIN HUMULIN R 100 UNIT/ML 3ML SQ SCH ×3 (06:36→16:12)
[2021-06-03 07:00] VITALS: BP 119/72
[2021-06-03] MEDS: TAMSULOSIN HCL 0.4 MG CAP.ER.24H PO SCH (08:47)
[2021-06-03] MEDS: FAMOTIDINE 20MG TAB PO SCH (08:48)
[2021-06-03] MEDS: METOPROLOL TARTRATE 25 MG TAB PO SCH (08:48)
[2021-06-03] MEDS: ATORVASTATIN 40 MG TABLET PO SCH (08:48)
[2021-06-03] MEDS: AMIODARONE 200 MG TABLET PO SCH (08:48)
[2021-06-03] MEDS: ASPIRIN 81 MG EC TAB PO SCH (08:49)
[2021-06-03] MEDS: BICALUTAMIDE 50 MG PO SCH (08:52)
[2021-06-03] MEDS ORDERED: ACET-2247 PO (10:01)
[2021-06-03] MEDS ORDERED: METO-391 PO (10:01)
[2021-06-03] MEDS ORDERED: POTA-192 PO (10:01)
[2021-06-03] MEDS ORDERED: FAMO20TA8 PO (10:01)
[2021-06-03] MEDS ORDERED: WARF4TAB72 PO (10:03)
[2021-06-03 11:00] VITALS: BP 105/67
[2021-06-04] MEDS ORDERED: KCL 20 MEQ ERTAB PO SCH (09:00)
[2021-06-04] MEDS ORDERED: FUROSEMIDE 40 MG TABLET PO SCH (09:00)
[2021-06-04] MEDS ORDERED: AMIODARONE 200 MG TABLET PO SCH (09:00)
== END 2021-06-03 16:30 | disposition home or self-care (01) | DRG 219 ==
LOC: DAHIP 05:53 → 2CV 13:30 → 2CH 05-29 06:41 → 2DH 06-01 18:08
PROVIDERS: ADMIT Thoracic Surgery (Cardiothoracic Vascular Surgery); ATTEND Thoracic Surgery (Cardiothoracic Vascular Surgery)
PROC: 5A1221Z Performance of Cardiac Output, Continuous (ICD-10-PCS; 2021-05-28)
PROC: B24BZZ4 Ultrasonography of Heart with Aorta, Transesophageal (ICD-10-PCS; 2021-05-28)
PROC: 30233N1 Transfusion of Nonautologous Red Blood Cells into Peripheral Vein, Percutaneous Approach (ICD-10-PCS; 2021-05-28)
PROC: 02100Z9 Bypass Coronary Artery, One Artery from Left Internal Mammary, Open Approach (ICD-10-PCS; principal; 2021-05-28 09:54)
PROC: 02RF08Z Replacement of Aortic Valve with Zooplastic Tissue, Open Approach (ICD-10-PCS; 2021-05-28 09:54)
PROC: 021009W Bypass Coronary Artery, One Artery from Aorta with Autologous Venous Tissue, Open Approach (ICD-10-PCS; 2021-05-28 09:54)
PROC: 06BQ4ZZ Excision of Left Saphenous Vein, Percutaneous Endoscopic Approach (ICD-10-PCS; 2021-05-28 09:54)
PROC: 30233R1 Transfusion of Nonautologous Platelets into Peripheral Vein, Percutaneous Approach (ICD-10-PCS; 2021-05-29)
PROC: 0W9B30Z Drainage of Left Pleural Cavity with Drainage Device, Percutaneous Approach (ICD-10-PCS; 2021-05-30)
DX: I35.0 Nonrheumatic aortic (valve) stenosis (principal); I50.43 Acute on chronic combined systolic (congestive) and diastolic (congestive) heart failure; J95.1 Acute pulmonary insufficiency following thoracic surgery; J96.91 Respiratory failure, unspecified with hypoxia; J94.2 Hemothorax; J91.8 Pleural effusion in other conditions classified elsewhere; I25.10 Atherosclerotic heart disease of native coronary artery without angina pectoris; E78.00 Pure hypercholesterolemia, unspecified; D69.6 Thrombocytopenia, unspecified; E11.9 Type 2 diabetes mellitus without complications; E78.5 Hyperlipidemia, unspecified; F17.210 Nicotine dependence, cigarettes, uncomplicated; I11.0 Hypertensive heart disease with heart failure; I25.5 Ischemic cardiomyopathy; C61 Malignant neoplasm of prostate; D64.9 Anemia, unspecified; I48.91 Unspecified atrial fibrillation; Z20.822 Contact with and (suspected) exposure to COVID-19; N40.0 Benign prostatic hyperplasia without lower urinary tract symptoms; Z79.01 Long term (current) use of anticoagulants; Z79.4 Long term (current) use of insulin; Z79.82 Long term (current) use of aspirin; Z79.84 Long term (current) use of oral hypoglycemic drugs; Z79.899 Other long term (current) drug therapy; Z80.42 Family history of malignant neoplasm of prostate; Z82.49 Family history of ischemic heart disease and other diseases of the circulatory system; Y83.8 Other surgical procedures as the cause of abnormal reaction of the patient, or of later complication, without mention of misadventure at the time of the procedure; Y92.89 Other specified places as the place of occurrence of the external cause
CPT/HCPCS: 36415; 36430; 36600; 71045; 71046; 80048; 80053; 82330; 82435; 82803; 82947; 82948; 83605; 83735; 84100; 84132; 84295; 85014; 85018; 85025; 85027; 85347; 85384; 85610; 85730; 86850; 86900; 86901; 86923; 87635; 93005; 93306; 93313; 93318; 94002; 94150; 97039; A7048; G0378; J0171; J0282; J0610; J0690; J1644; J1815; J1940; J2001; J2250; J2370; J2405; J2440; J2704; J2720; J3010; J3475; J3480; J3490; J7030; J7040; J7060; J7120; P9016; P9034; P9045; P9047

== ENCOUNTER → 2023-05-24 | Outpatient (CLI) | payer OTHER ==
[~2023-05-24] MED LIST changes: +ACET-2247 PO; +FAMO20TA8 PO; +METO-391 PO; +POTA-192 PO; +WARF4TAB72 PO
[2023-05-24 13:11] LABS: ALBUMIN 3.9 g/dL (3.5-5.0); BILIRUBIN,TOTAL 0.8 mg/dL (0.2-1.0); TOTAL PROTEIN, SERUM 7.7 g/dL (6.0-8.3)
== END | disposition home or self-care (01) ==
LOC: LAB 08:15
PROVIDERS: ATTEND Internal Medicine Cardiovascular Disease
DX: R06.02 Shortness of breath (principal); I25.9 Chronic ischemic heart disease, unspecified
CPT/HCPCS: 36415; 80053; 83880

== ENCOUNTER → 2023-11-21 | Outpatient (CLI) | payer OTHER ==
[~2023-11-21] MED LIST changes: -ACET-2247 PO; +EMPA25TA PO; -FAMO20TA8 PO; -FURO20TA4 PO; +FURO40TA5 PO; -LISI2.5T13 PO; -METF-444 PO; +METF-527 PO; +MULT-1081 PO; -POTA-192 PO; +POTA-193 PO; +VALS40TA11 PO; -WARF4TAB72 PO
== END | disposition home or self-care (01) ==
LOC: SHCH 10:23
PROVIDERS: ATTEND Internal Medicine Cardiovascular Disease
DX: I34.0 Nonrheumatic mitral (valve) insufficiency (principal); E11.9 Type 2 diabetes mellitus without complications; E78.5 Hyperlipidemia, unspecified; I10 Essential (primary) hypertension; Z95.3 Presence of xenogenic heart valve
CPT/HCPCS: 93306

== ENCOUNTER 2025-02-07 10:14 | Observation (INO) | payer OTHER ==
[~2025-02-07] VITALS: Ht 182.9 cm; Wt 102.2 kg
[~2025-02-07 10:14] MED LIST changes: -TAMS-1 PO; +TAMS-55 PO
--- NOTE | 2025-02-07 11:01 | HMCIMG ---
EXAM: CR right Rib, 5 View. CLINICAL HISTORY: fall COMPARISON: Radiograph dated September 30, 2023 FINDINGS: LUNGS: The visualized lungs appear essentially clear. Incidental calcified granuloma within the peripheral right midlung. Prior sternotomy. Aortic valve replacement. Heart size and pulmonary vessels are within normal limits. PLEURAL SPACES: No evidence of pneumothorax. No pleural effusion. BONES: No visible acute rib fracture. IMPRESSION: No visible acute rib fracture. No pneumothorax. /[place]
--- NOTE | 2025-02-07 11:21 | ERN ---
General Chief Complaint: Mechanical Fall Stated Complaint: RIB PAIN Time Seen by MD: 10:16 Source: patient History of Present Illness Initial Comments Patient is a 64-year-old gentleman coming in complaining of right-sided chest pain. Patient states that while walking down some steps he slid and landed on his right side of the chest. He states this happened last night his pain is localized to the right chest region reproducible on palpation and quantifies it at 8/10. Allergies: Coded Allergies: No Known Drug Allergies (Unverified Allergy, Unknown, 05/19/21) Home Meds Reported Medications Valsartan (Valsartan) 40 Mg Tablet, 40 MG PO DAILY, TAB 09/28/23 Metoprolol Succinate (Metoprolol Succinate) 50 Mg Tab.er.24h, 75 MG PO DAILY, TAB 09/28/23 Metformin HCl (Metformin HCl ER) 1,000 Mg Tab.er.24, 1000 MG PO BIDMEALS 09/28/23 Furosemide (Furosemide) 40 Mg Tablet, 40 MG PO DAILYDINNER, TAB 09/28/23 Furosemide (Furosemide) 40 Mg Tablet, 80 MG PO DAILY, TAB 09/28/23 Empagliflozin (Jardiance) 25 Mg Tablet, 25 MG PO DAILYBKFST, TAB 08/26/23 Potassium Chloride (Klor-Con M20) 20 Meq Tab.er.prt, 20 MEQ PO DAILY 08/26/23 Multivitamin W-Minerals/Lutein (Centrum Silver Ultra Men's Tab) 300 Mcg-60 Mcg-600 Mcg-300 Mcg Tablet, 1 EACH PO DAILY, TAB 05/27/23 Bicalutamide (Bicalutamide) 50 Mg Tablet, 50 MG PO DAILY, TAB 05/27/21 Atorvastatin Calcium (LIPITOR) 40 Mg Tablet, 40 MG PO DAILY, TAB 05/19/21 Aspirin (ASPIRIN 81 MG ECTAB) 81 Mg Ectab, 81 MG PO DAILY, TAB.EC 05/19/21 Tamsulosin HCl (Flomax) 0.4 Mg Cap.er.24h, 0.4 MG PO DAILY, CAPSULE. 05/19/21 Past Medical History Past Medical History: Cancer, CHF, High Cholesterol, Heart Disease, Hypertension, [place], Other Medical History Other: CARDIAC VALVE REPLACEMENT, HX OF PROSTATE CA Past Surgical History: CABG Social History Social History: Negative, Lives with family ROS Dictation CONSTITUTIONAL: No chills, no fever, no weakness, no diaphoresis, no malaise. HEAD/FACE: No signs of trauma. EENT: No eye pain, no blurred vision, no tearing, no double vision, no ear pain, no ear discharge, no nose pain, no nasal congestion, no throat pain, no throat swelling, no mouth pain. RESPIRATORY: No cough, no orthopnea, no SOB, no stridor, no wheezing. CARDIOVASCULAR: chest pain, no edema, no palpitations, no syncope. GASTROINTESTINAL/ABDOMINAL: No abdominal pain, no constipation, no diarrhea, no nausea, no vomiting. GENITOURINARY: No abnormal discharge, no dysuria, no frequent urination, no hematuria. No complaints of pain in the genitals. MUSCULOSKELETAL: No back pain, no gout, no joint pain, no joint swelling, no muscle pain, no muscle stiffness, no neck pain. INTEGUMENTARY: No change in color, no change in hair/nails, no dryness, no lesion, no lumps, no rash. NEUROLOGICAL/PSYCH: No anxiety, not depressed, no emotional problem, no headache, no numbness, no pre-existing deficit, no history of seizures, no tremors, no weakness. HEMATOLOGIC/LYMPHATIC: Not anemic, no history of blood clots, no apparent bleeding, no bruising, glands not swollen. All Systems Negative, Except as Noted. Physical Exam Physical Exam Dictation VITAL SIGNS: Reviewed. GENERAL APPEARANCE: Alert, oriented x3, no acute distress, obese. HEAD AND FACE: Non-traumatic. EYES: PERRL, pink conjunctivas, eyelid no trauma, anterior chamber clear. EARS: Pinnas intact and no signs of trauma or erythema. Ear canals clear and no discharge. TMs no erythema. NOSE: No discharge, no bleeding. OROPHARYNX: Mouth normal, teeth no caries, tongue pink. Pharynx clear, no erythema. Tonsils no exudates, no abscesses noted. Mucous membrane moist. NECK: Supple, non-tender, no thyromegaly, no masses, no JVD, no bruits. BREAST: Deferred. CHEST: No tenderness, no crepitus, no paradoxical movement, no retractions. LUNGS: Clear, well-ventilated, symmetric, no rales, no wheezing, no rhonchi, no stridor, good breath sounds bilaterally. HEART: Regular rate, regular rhythm, no murmur, no gallops. VASCULAR: No peripheral edema. ABDOMEN: Soft, positive bowel sounds, nondistended, no guarding, nontender, no rebound, no masses no hepatomegaly, no splenomegaly, no Saxena's sign, no hernias. RECTAL: Deferred. GENITAL: Deferred. NEUROLOGICAL: Normal speech, gross motor function intact, gross sensory function intact. MUSCULOSKELETAL: Neck nontender, full range of motion, back nontender, full range of motion. EXTREMITIES: Nontender, full range of motion. SKIN: Color pink, dry, no turgor, no rash, no lacerations, no abrasions, no contusions. LYMPHATICS: Deferred. Results Laboratory and Microbiology Lab and Micro Result Laboratory Tests Test 02/07/25 11:11 02/07/25 12:07 White Blood Count 7.8 K/uL (4.8-10.8) Red Blood Count 4.19 MIL/uL (4.50-6.20) L Hemoglobin 13.2 g/dL (14.0-18.0) L Hematocrit 39.1 % (42-54) L Mean Corpuscular Volume 93.3 fL (79-99) Mean Corpuscular Hemoglobin 31.5 pg (27.0-33.0) Mean Corpuscular Hemoglobin Concent 33.8 g/dL (32.0-36.0) Red Cell Distribution Width 13.2 % (11.0-15.5) Platelet Count 269 K/uL (130-400) Mean Platelet Volume 10.0 fL (7.5-10.5) Immature Granulocyte % (Auto) 0.4 % (0-1) Neutrophils (%) (Auto) 52.7 % (40.0-77.0) Lymphocytes (%) (Auto) 32.4 % (21.0-51.0) Monocytes (%) (Auto) 10.0 % (3.0-13.0) Eosinophils (%) (Auto) 3.7 % (0.0-8.0) Basophils (%) (Auto) 0.8 % (0.0-5.0) Neutrophils # (Auto) 4.1 K/uL (1.8-7.7) Lymphocytes # (Auto) 2.5 K/uL (1.0-4.8) Monocytes # (Auto) 0.8 K/uL (0.1-1.0) Eosinophils # (Auto) 0.29 K/uL (0.00-0.70) Basophils # (Auto) 0.06 K/uL (0.00-0.20) Absolute Immature Granulocyte (auto 0.03 K/uL (0-1) Nucleated Red Blood Cells 0.0 % (0.0-0.19) Sodium Level 135 mmol/L (136-145) L Potassium Level 3.8 mmol/L (3.5-5.1) Chloride Level 100 mmol/L (101-111) L Carbon Dioxide Level 28 mmol/L (21-32) Blood Urea Nitrogen 14 mg/dL (7-18) Creatinine 0.9 mg/dL (0.5-1.3) Glomerular Filtration Rate Calc 95 mL/min (>90) Random Glucose 133 mg/dL (70-105) H Total Calcium 9.3 mg/dL (8.5-10.1) Troponin I High Sensitivity 22 ng/L (4-75) Urine Color LIGHT-YELLOW (YELLOW) Urine Appearance CLEAR (CLEAR) Urine pH 5.5 (5.0-8.0) Urine Specific [place] 1.040 (1.001-1.031) Urine Protein NEGATIVE mg/dL (NEGATIVE) Urine Glucose (UA) >=1000 mg/dL (NEGATIVE) H Urine Ketones NEGATIVE mg/dL (NEGATIVE) Urine Occult Blood NEGATIVE (NEGATIVE) Urine Nitrate NEGATIVE (NEGATIVE) Urine Bilirubin NEGATIVE mg/dL (NEGATIVE) Urine Urobilinogen 0.2 mg/dL (0.2-1.0) Urine Leukocyte Esterase NEGATIVE Michelle/uL Urine RBC 0-1 /HPF (0-1) Urine WBC 0-1 /HPF (0-1) Urine Squamous Epithelial Cells Rare /HPF (0-2) Urine Bacteria None Seen /HPF (None Seen) Labs Reviewed?: Yes EKG/XRAY/US/CT/MRI EKG Comment 02/07/2025 time 10:23 a.m. Ventricular rate 76 Sinus rhythm Left bundle branch block SC 165 Compared to a previous EKG back in September of 2023 left bundle branch block is new. X-RAY Comment IMAGING REPORT Signed PATIENT: NELY TEMPLE MR#: [id number] : 1960 SEX: M AGE: 64 LOCATION: [facility] ORDER 103 STATUS: REG ER REPORT#: [id number] SERVICE [id number] REASON: fall ORDERING PHYSICIAN: MALOU MCCULLOUGH MD PROCEDURE: RIB RT W C - RIBS UNI RT W PA CHEST 3+ VWS EXAM: CR right Rib, 5 View. CLINICAL HISTORY: fall COMPARISON: Radiograph dated September 30, 2023 FINDINGS: LUNGS: The visualized lungs appear essentially clear. Incidental calcified granuloma within the peripheral right midlung. Prior sternotomy. Aortic valve replacement. Heart size and pulmonary vessels are within normal limits. PLEURAL SPACES: No evidence of pneumothorax. No pleural effusion. BONES: No visible acute rib fracture. IMPRESSION: No visible acute rib fracture. No pneumothorax. /[place] DICTATED BY: DEDE VERDUGO Jr., MD DATE: 02/07/25 1200 ELECTRONICALLY SIGNED BY: DEDE VERDUGO Jr., MD DATE: 02/07/25 1200 MDM MDM: Differential diagnosis: NEW ONSET LEFT BUNDLE-BRANCH BLOCK, CHEST PAIN, HISTORY OF CAD Rationale: Tests considered and ordered secondary to shared decision making include: Previous outside records reviewed: Old ER visits. Risk of complication and/or morbidity or mortality of patient management: None Medications-Per medication reconciliation Need for hospitalization: Patient does meet criteria for hospitalization. Need for emergency major/minor surgery: No There are no social concerns with this patient. Prescription drug management Prescriptions will include symptomatic care Patient's prior external medical records from other ER visits were reviewed by me as indicated. Prior testing and results from previous visits were reviewed. Prior tests were taken into account with medical decision making and resource utilization, independent historian/historians were used to obtain complete medical history. I independently interpreted the test that were performed, results were reviewed by me and considered findings on radiology if ordered. Medical management and examination interpretation discussions were had by me with other qualified healthcare professionals as indicated for the patient's care. PATIENT WILL BE ADMITTED UNDER THE CARE OF [facility]OSPITAL[facility] GROUP FOR ONGOING MANAGEMENT OF CHEST PAIN WITH NEW LEFT BUNDLE BRANCH BLOCK ED Course Orders Procedure Category Date Status Time Ribs Uni Rt W Pa RAD 02/07/25 Resulted Chest 3+ Vws 10:30 Cbc With Differential LAB 02/07/25 Complete 10:33 Troponin I High LAB 02/07/25 Complete Sensitivity 10:33 Urinalysis Profile LAB 02/07/25 Complete 10:33 Basic Metabolic Panel LAB 02/07/25 Complete 10:33 12 Lead Ekg Tracing- EKG 02/07/25 Complete Technical 11:25 Vital Signs Date Time Temp Pulse Resp B/P (MAP) Pulse Ox O2 Delivery O2 Flow Rate FiO2 02/07/25 11:03 98.1 75 18 88/48 99 Room Air* 0 21 02/07/25 10:15 98.4 76 16 106/65 95 Room Air 0 DX & DISP Disposition: Inpatient Decision to Admit Time: 12:55 Departure Impression: Primary Impression: Left bundle branch block (LBBB) determined by electrocardiography Additional Impression: History of CAD (coronary artery disease) Condition: Stable Referrals: ALTHEA BALLARD MD (PCP) MALOU MCCULLOUGH MD Feb 07, 2025 11:21
[2025-02-07 11:24] LABS: CREATININE 0.9 mg/dL (0.5-1.3); GLOMERULAR FILTR. RATE CALC 95.0 mL/min (>90); GLUCOSE,RANDOM 133.0 mg/dL (70-105); SODIUM SERUM 135.0 mmol/L (136-145); UREA NITROGEN, BLOOD 14.0 mg/dL (7-18)
[2025-02-07 11:27] LABS: IMMATURE GRANULOCYTE ABSOLUTE 0.03 K/uL (0-1); NUCLEATED RED BLOOD CELLS 0.0 % (0.0-0.19); PLATELET COUNT (AUTO) 269 K/uL (130-400); RED BLOOD CELL COUNT(AUTO) 4.19 MIL/uL (4.50-6.20); RED CELL DISTRIBUTION WIDTH 13.2 % (11.0-15.5); WHITE BLOOD COUNT (AUTO) 7.8 K/uL (4.8-10.8)
--- NOTE | 2025-02-07 11:27 | EKG ---
[facility] Test Date: 2025-02-07 Test Time: 10:23:45 Pat Name: NELY TEMPLE Department: ED Room: 419 Gender: M [employer]er: [id number] : 1960 Requested By: MALOU MCCULLOUGH Order Number: [id number] Reading MD: Eduardo Myers Measurements Intervals [place] Rate: 76 P: 84 OR: 165 QRS: 9 QRSD: 176 T: 153 QT: 465 QTc: 523 Interpretive Statements Sinus rhythm Left bundle branch block ST elevation secondary to IVCD Compared to ECG 09/28/2023 03:14:03 Left bundle-branch block now present Intraventricular conduction delay now present ST (T wave) deviation now present Electronically Signed On 02-10-2025 23:55:11 CDT by Eduardo Myers Please click the below link to view image of tracing.
[2025-02-07 12:20] LABS: APPEARANCE,URINE CLEAR (CLEAR); GLUCOSE, URINE (UA) >=1000 mg/dL (NEGATIVE); LEUKOCYTE ESTERASE ,URINE NEGATIVE Leu/uL (NEGATIVE); NITRATE,URINE NEGATIVE (NEGATIVE); OCCULT BLOOD,URINE NEGATIVE (NEGATIVE)
[2025-02-07 12:26] LABS: ADD UA MICROSCOPIC YES
[2025-02-07 12:36] LABS: SQUAMOUS EPITHELIAL CELL,UR Rare /HPF (0-2)
--- NOTE | 2025-02-07 13:15 | HP ---
[facility] HISTORY AND PHYSICAL Date of Service: Feb 07, 2025 Time of Service: 13:15 HISTORY OF PRESENT ILLNESS: This 63-year-old male with a history of prostate cancer, hypertension, type 2 diabetes with circulatory manifestations, poor dentition with multiple caries, hyperlipidemia, and a bicuspid aortic valve with coronary disease is status post aortic valve replacement with a #27 [place] Trifecta bioprosthesis and two-vessel bypass surgery with QUAN to the LAD and saphenous vein graft to the PDA on 05/28/2021 was noted to have a new murmur of aortic insufficiency 03/25/2023, patient patient had a redo of his aortic valve in [place] in 2023 who presented to the hospital status post fall. Patient states while climbing down stairs yesterday, he had a fall. He states the fall happened after he tripped on the steps. He denies losing consciousness during the event. He fell forward and hit his head and also hit the right side of his chest area. Since then he has noted pain in the right lateral chest wall area. Pain is worse with sitting up and moving. While patient is resting pain is controlled. He denies any midsternal chest pain, jaw pain, paresthesias to the arm, abdominal pain, nausea, vomiting, headache, cervical neck pain. Denied any upper or lower extremity weakness. Patient had a aortic valve surgery in [place] last year. His surgical course was complicated by MT and he needed ECMO support. He is currently being followed by Dr. Myers as outpatient. He did take his medications in the morning prior to coming to the hospital. Labs in the ED were notable for white count of 7.8, hemoglobin was 13.2, platelet count was 269 K, sodium was 135, potassium was 3.8, chloride was 100, creatinine was 0.9 Had a rib x-ray with chest x-ray done which showed no visible fracture, no pneumothorax REVIEW OF SYSTEMS CONSTITUTIONAL: Denies fevers, chills, or night sweats. No unintentional weight loss reported. NEUROLOGICAL: Denies headache, amaurosis fugax, motor weakness, sensory deficit, vertigo/spinning sensation, gait abnormalities, or tremors. ENT: No hearing loss, otalgia, otorrhea, rhinitis, rhinorrhea, hoarseness, or sore throat. CARDIOVASCULAR: Denies any exertional angina, dyspnea on exertion, orthopnea, paroxysmal nocturnal dyspnea, palpitations, life-threatening arrhythmias, claudication. Positive for right-sided chest pain PULMONARY: Denies any shortness of breath, cough, phlegm/sputum, hemoptysis, pleuritic chest pain. SLEEP: Denies morning headaches, daytime somnolence or napping. Denies difficulty falling asleep, staying asleep, waking from sleep. Denies knowledge of snoring. GASTROINTESTINAL: Denies any type of dysphagia to either liquids or solids. Denies nausea, vomiting, pyrosis, early satiety, abdominal pain, diarrhea, constipation, or changes in stool consistency or caliber. Denies coffee-ground emesis, hematemesis, hematochezia, or melanotic stools. GENITOURINARY: Denies frequency, urgency, nocturia, hematuria or incontinence (Storage/Irritative symptoms.) Low urinary stream, straining to void, urinary intermittency or hesitancy, splitting of the voiding stream, terminal dribbling. ENDOCRINOLOGIC: Denies polyuria, polydipsia, polyphagia or heat/cold intolerances. HEMATOLOGIC: Denies thrombophilia/previous clots, or coagulopathy/bleeding disorders. ONCOLOGIC: Denies personal history of malignancy. DERMATOLOGIC: Denies rashes or pruritus. PSYCHIATRIC: Denies any suicidal or homicidal ideation. Denies hallucinations. PAST MEDICAL HISTORY: history of prostate cancer, hypertension, type 2 diabetes with circulatory manifestations, poor dentition with multiple caries, hyperlipidemia, and a bicuspid aortic valve with coronary disease is status post aortic valve replacement with a #27 [place] Trifecta bioprosthesis and two-vessel bypass surgery with QUAN to the LAD and saphenous vein graft to the PDA on 05/28/2021 was noted to have a new murmur of aortic insufficiency 03/25/2023, history of redo of his aortic valve surgery in [place] PAST SURGICAL HISTORY: History of prior coronary artery bypass surgery x 2 vessels with QUAN to the LAD and saphenous vein graft to the PDA with bioprosthetic aortic valve replacement with a #27 [place] trifecta bioprosthesis 05/28/2021 Tonsillectomy Redo of his aortic valve surgery in [place] in 2023 PAST SOCIAL HISTORY: Denied any smoking, alcohol, drug use FAMILY HISTORY: Denied any pertinent family history Coded Allergies: No Known Drug Allergies (Unverified Allergy, Unknown, 05/19/21) PHYSICAL EXAM GENERAL APPEARANCE: The patient is awake, alert, and oriented, in no acute cardiopulmonary distress. NEUROLOGICAL: Cranial nerves II-XII grossly intact. Motor is 5/5 in bilateral upper and lower extremities proximal to distal. No sensory deficits. HEENT: Face is symmetric. Pupils are equal and reactive. Extraocular movements are intact. NECK: Supple. No JVD. No thyromegaly. No submental, submandibular, pre- /postauricular, occipital or supraclavicular lymphadenopathy. CHEST: Normal chest expansion. No Telemetry. Has tenderness to palpation on his right lateral chest wall area LUNGS: Absence of any rales, rhonchi or any wheezing. CARDIOVASCULAR: Regular. S1 and S2 normal. No appreciable rubs, murmurs or gallops. ABDOMEN: Soft, nontender, and nondistended. There is no rebound, voluntary guarding, or rigidity. : Deferred. No [place]. EXTREMITIES: Non-edematous and not cyanotic. No clubbing. Good capillary refill. SKIN: No skin breakdown. Vital Sign (Last 24 Hours) 02/07/25 11:03 Temp 98.1 Pulse 75 Resp 18 B/P (MAP) 88/48 Pulse Ox 99 O2 Delivery Room Air* O2 Flow Rate 0 FiO2 21 LABS: Laboratory: Test 02/07/25 12:07 02/07/25 11:11 Range/Units Urine Color LIGHT-YELLOW YELLOW Urine Appearance CLEAR CLEAR Urine pH 5.5 5.0-8.0 Urine Specific [place] 1.040 H 1.001-1.031 Urine Protein NEGATIVE NEGATIVE mg/dL Urine Glucose (UA) >=1000 H NEGATIVE mg/dL Urine Ketones NEGATIVE NEGATIVE mg/dL Urine Occult Blood NEGATIVE NEGATIVE Urine Nitrate NEGATIVE NEGATIVE Urine Bilirubin NEGATIVE NEGATIVE mg/dL Urine Urobilinogen 0.2 0.2-1.0 mg/dL Urine Leukocyte Esterase NEGATIVE NEGATIVE Michelle/uL Urine RBC 0-1 0-1 /HPF Urine WBC 0-1 0-1 /HPF Urine Squamous Epithelial Cells Rare 0-2 /HPF Urine Bacteria None Seen None Seen /HPF White Blood Count 7.8 4.8-10.8 K/uL Red Blood Count 4.19 L 4.50-6.20 MIL/uL Hemoglobin 13.2 L 14.0-18.0 g/dL Hematocrit 39.1 L 42-54 % Mean Corpuscular Volume 93.3 79-99 fL Mean Corpuscular Hemoglobin 31.5 27.0-33.0 pg Mean Corpuscular Hemoglobin Concent 33.8 32.0-36.0 g/dL Red Cell Distribution Width 13.2 11.0-15.5 % Platelet Count 269 130-400 K/uL Mean Platelet Volume 10.0 7.5-10.5 fL Immature Granulocyte % (Auto) 0.4 0-1 % Neutrophils (%) (Auto) 52.7 40.0-77.0 % Lymphocytes (%) (Auto) 32.4 21.0-51.0 % Monocytes (%) (Auto) 10.0 3.0-13.0 % Eosinophils (%) (Auto) 3.7 0.0-8.0 % Basophils (%) (Auto) 0.8 0.0-5.0 % Neutrophils # (Auto) 4.1 1.8-7.7 K/uL Lymphocytes # (Auto) 2.5 1.0-4.8 K/uL Monocytes # (Auto) 0.8 0.1-1.0 K/uL Eosinophils # (Auto) 0.29 0.00-0.70 K/uL Basophils # (Auto) 0.06 0.00-0.20 K/uL Absolute Immature Granulocyte (auto 0.03 0-1 K/uL Nucleated Red Blood Cells 0.0 0.0-0.19 % Sodium Level 135 L 136-145 mmol/L Potassium Level 3.8 3.5-5.1 mmol/L Chloride Level 100 L 101-111 mmol/L Carbon Dioxide Level 28 21-32 mmol/L Blood Urea Nitrogen 14 7-18 mg/dL Creatinine 0.9 0.5-1.3 mg/dL Glomerular Filtration Rate Calc 95 >90 mL/min Random Glucose 133 H 70-105 mg/dL Total Calcium 9.3 8.5-10.1 mg/dL Troponin I High Sensitivity 22 4-75 ng/L DIAGNOSTICS / RADIOLOGY: Rib x-ray showed no fracture ASSESSMENT: Mechanical fall POA Right-sided chest pain likely secondary to mechanical fall POA Abnormal EKG History of aortic valve replacement History of CAD status post CABG Hypertension Hyperlipidemia History of heart failure with preserved EF History of prostate cancer on chemotherapy PLAN: - patient to be admitted to medical-surgical unit with telemetry -in reference to right-sided chest pain. We will obtain a CT chest to rule out any occult rib fracture. Pain likely musculoskeletal from trauma. Patient will be started on morphine and Tylenol with codeine for pain control -in reference to abnormal EKG. We will kindly request consultation with Cardiology. Obtain echocardiogram. Repeat troponin. - obtain CT head -obtain home medications which will be reconciled once available -keep potassium greater than four and magnesium greater than two -further orders per hospitalization course. Advanced Care Planning Which of the following were discussed: Hospice care: Yes __ No _x_ Therapeutic options: Yes __ No __ Advance directives: Yes __ No __ Other discussions: Pt is full code Discussed with who?: patient (Patient, family or surrogates) Voluntary nature of this service was explained to the patient? Yes _x_ No __ Amount of time spent: 25 minutes LEXY Tidwell MD, MD Feb 07, 2025 13:15
[2025-02-07 13:52] LABS: INR 1.05 (0.85-1.15)
[2025-02-07] MEDS ORDERED: MAGNESIUM 2GM PREMIX 50ML 50 ML IV PRN (14:00)
[2025-02-07] MEDS ORDERED: PoTASSium chl 10% ELIXIR 20MEQ 20 MEQ/15 ML UDCUP PO PRN (14:00)
[2025-02-07] MEDS ORDERED: PoTASSium chloRIDE 20MEQ ER 20 MEQ ERTAB PO PRN (14:00)
[2025-02-07] MEDS ORDERED: GLUCAGON 1MG KIT 1 MG ML IM PRN (15:00)
[2025-02-07] MEDS ORDERED: DEXTROSE 50%-WATER 50 ML DISP.SYRIN IV PRN (15:00)
--- NOTE | 2025-02-07 15:05 | CONS ---
[facility] CARDIOLOGY CONSULTATION REPORT Cardiology consultation note dictated for Laurent Croft MD Primary curtain mender: Eduardo Myers MD Date Patient Seen: Feb 07, 2025 Requesting Physician: Mira Silvestre MD Reason for Consultation: LBBB History of Present Illness: This is a 64-year-old male with a past medical history of HTN, HLP, DM II, CAD, s/p 2V CABG (QUAN-LAD, SVG-PDA), severe bicuspid , s/p bioprosthetic AVR (27 mm [facility] Trifecta) done on 05/28/[address] Ramon Salazar, periodontal disease s/p total dental extractions on 08/27/2023, s/p LHC on 08/26/2023 identified moderate aortic insufficiency, severe 2V CAD, s/p JOCE on 08/26/2023 identified severe central valvular AR due to deformation of AV bioprosthesis, s/p redo surgical AVR, aortic root graft, s/p bioprosthetic ascending aortic replacement, s/p reimplantation of SVG-RCA done on 10/11/2023 at [facility] in [facility], post-operative cardiogenic shock requiring transient ECMO and IABP placement, and moderately depressed LV systolic funct ion, and (LVEF: 30-35% by echo done on 11/21/2023) with grade III diastolic dysfunction who is co-managed by the advanced heart failure specialist out of [facility] in [place], Dr. Eduardo Hearn. The patient presented to the ED status post mechanical fall while walking down some stairs with complaints of right-sided chest discomfort aggravated by movement, deep inspiration, and palpation. CT of the head and chest are without acute findings. Cardiology has been consulted for left bundle branch block. In review of office records, the last EKG on 11/10/2023 demonstrated normal sinus rhythm/first- degree AV block versus atrial flutter with a 3-1 bloc, LBBB, with T-wave inversions in lead 1, 2, aVL, and V6 reviewed by then curtain mender Dr. Franc Mar. EKG on admission demonstrated normal sinus rhythm with a heart rate of 76 bpm, LBBB, TWI in leads 1, 2, aVL, V5, and V6. Past Medical History: As per HPI and summarized below Past Surgical History: Tonsillectomy Family History: The patient's mother had hypertension and heart disease. Social History: The patient lives with family. Habits: Refer to chart Home Meds: Home medications pending reconciliation Current Meds: Medications Dose Ordered Sig/Wan Start Time Stop Time Status Last Admin Famotidine 20 mg BID 02/07/25 21:00 03/09/25 20:59 Morphine Sulfate 2 mg Q6H PRN 02/07/25 13:30 02/14/25 13:29 Acetaminophen 500 mg Q6H PRN 02/07/25 13:30 03/09/25 13:29 Acetaminophen/ Codeine Phosphate 1 tab Q6H PRN 02/07/25 13:30 03/09/25 13:29 Potassium Chloride 100 ml @ 100 mls/hr AD PRN 02/07/25 14:00 03/09/25 13:59 Potassium Chloride 20 meq AD PRN 02/07/25 14:00 03/09/25 13:59 Potassium Chloride 20 meq AD PRN 02/07/25 14:00 03/09/25 13:59 Magnesium Sulfate 50 ml @ 0 mls/hr PROTOCOL PRN 02/07/25 14:00 03/09/25 13:59 Insulin Human Regular INSULIN SLIDING SCAL... ACHS 02/07/25 16:30 03/09/25 16:29 Dextrose 50 ml AD PRN 02/07/25 15:00 03/09/25 14:59 Glucagon 1 mg AD PRN 02/07/25 15:00 03/09/25 14:59 Review of Systems: CONST: The patient admits to right rib discomfort with deep inspiration, movement, and palpation. EYES: No recent vision problems. ENT: No congestion, ear pain, or sore throat. C/V: No chest pain, palpitations, or edema. RESP: No cough, congestion, wheezing or shortness of breath. GI: No abdominal pain, nausea, vomiting, constipation, or diarrhea. : No incontinence or dysuria. SKIN: No rash. NEURO: No headache, focal numbness or weakness, dizziness, or seizures. PSYCH: No depression or anxiety. HEME: No abnormal bruising or bleeding. LYMPH: No swollen glands. Physical Examination: GENERAL: No acute distress. HEAD: Normal with no signs of head trauma. EYES: PERRLA, EOMI, conjunctiva and sclera normal. ENT: Hearing grossly intact, normal oropharynx. NECK: Supple without JVD. There is no tenderness, lymphadenopathy, or masses. No thyromegaly. Normal carotid upstrokes without bruits. LUNGS: Clear breath sounds bilaterally. No wheezes, or rhonchi. HEART: Normal rate and rhythm. Normal S1 and S2 without murmurs, gallop or rub. VASC: Peripheral pulses +2 bilaterally. ABD: Bowel sounds normal, soft, nontender, no masses, no organomegaly. No audible bruits. : Not examined LYMPH: No lymphadenopathy noted. EXT: No clubbing, cyanosis or edema. SKIN: Left knee with excoriation. NEURO: Awake, alert, and oriented x3. No focal sensory or strength deficits noted. Vital Signs (last 8hr) Date Time Temp Pulse Resp B/P (MAP) Pulse Ox O2 Delivery O2 Flow Rate FiO2 02/07/25 11:03 98.1 75 18 88/48 99 Room Air* 0 21 02/07/25 10:15 98.4 76 16 106/65 95 Room Air 0 Laboratory: Hematology Labs: Test 02/07/25 11:11 Range/Units White Blood Count 7.8 4.8-10.8 K/uL Red Blood Count 4.19 L 4.50-6.20 MIL/uL Hemoglobin 13.2 L 14.0-18.0 g/dL Hematocrit 39.1 L 42-54 % Mean Corpuscular Volume 93.3 79-99 fL Mean Corpuscular Hemoglobin 31.5 27.0-33.0 pg Mean Corpuscular Hemoglobin Concent 33.8 32.0-36.0 g/dL Red Cell Distribution Width 13.2 11.0-15.5 % Platelet Count 269 130-400 K/uL Mean Platelet Volume 10.0 7.5-10.5 fL Immature Granulocyte % (Auto) 0.4 0-1 % Neutrophils (%) (Auto) 52.7 40.0-77.0 % Lymphocytes (%) (Auto) 32.4 21.0-51.0 % Monocytes (%) (Auto) 10.0 3.0-13.0 % Eosinophils (%) (Auto) 3.7 0.0-8.0 % Basophils (%) (Auto) 0.8 0.0-5.0 % Neutrophils # (Auto) 4.1 1.8-7.7 K/uL Lymphocytes # (Auto) 2.5 1.0-4.8 K/uL Monocytes # (Auto) 0.8 0.1-1.0 K/uL Eosinophils # (Auto) 0.29 0.00-0.70 K/uL Basophils # (Auto) 0.06 0.00-0.20 K/uL Absolute Immature Granulocyte (auto 0.03 0-1 K/uL Nucleated Red Blood Cells 0.0 0.0-0.19 % Chemistry Labs: Test 02/07/25 11:11 Range/Units Sodium Level 135 L 136-145 mmol/L Potassium Level 3.8 3.5-5.1 mmol/L Chloride Level 100 L 101-111 mmol/L Carbon Dioxide Level 28 21-32 mmol/L Blood Urea Nitrogen 14 7-18 mg/dL Creatinine 0.9 0.5-1.3 mg/dL Glomerular Filtration Rate Calc 95 >90 mL/min Random Glucose 133 H 70-105 mg/dL Hemoglobin A1c 7.3 H 4.0-6.0 % Estimated Average Glucose (eAG) 163 H 70-126 mg/dL Total Calcium 9.3 8.5-10.1 mg/dL Troponin I High Sensitivity 22 4-75 ng/L Thyroid Stimulating Hormone (TSH) 1.66 # 0.36-3.74 uIU/mL Coagulation Labs: Test 02/07/25 11:11 Range/Units Prothrombin Time 11.1 9.6-11.6 SEC Prothromb Time International Ratio 1.05 0.85-1.15 Activated Partial Thromboplast Time 27.4 26.3-35.5 SEC Diagnostics / Radiology: Impression and Plan: Mechanical fall Right rib discomfort Concern for new LBBB HTN HLP DM II CAD, s/p 2V CABG (QUAN-LAD, SVG-PDA), severe bicuspid , s/p bioprosthetic AVR (27 mm [facility] Trifecta) done on 05/28/[address] Ramon Salazar Periodontal disease s/p total dental extractions on 08/27/2023 S/p LHC on 08/26/2023 identified moderate aortic insufficiency, severe 2V CAD S/p JOCE on 08/26/2023 identified severe central valvular AR due to deformation of AV bioprosthesis S/p redo surgical AVR, aortic root graft, s/p bioprosthetic ascending aortic replacement, s/p reimplantation of SVG-RCA done on 10/11/2023 at [facility] Post-operative cardiogenic shock requiring transient ECMO and IABP placement Moderately depressed LV systolic function, and (LVEF: 30-35% by echo done on 11/21/2023) with grade III diastolic dysfunction Co-managed by the advanced heart failure specialist out of [facility] in [place], Dr. Eduardo Hearn Concern for new LBBB In review of office records, the last EKG on 11/10/2023 demonstrated normal sinus rhythm/first-degree AV block versus atrial flutter with a 3-1 bloc, LBBB, with T-wave inversions in lead 1, 2, aVL, and V6 reviewed by then curtain mender Dr. Franc Mar. EKG on admission demonstrated normal sinus rhythm with a heart rate of 76 bpm, LBBB, TWI in leads 1, 2, aVL, V5, and V6, relatively unchanged -Echocardiogram is pending -No further cardiac workup -Follow up with Dr. Moise Myers, keep upcoming scheduled appointment. DARCY JONESP Feb 07, 2025 15:05
--- NOTE | 2025-02-07 15:15 | NUR ---
DCP; HOME Sw met with pt who reports he lives in a second floor apt, he tripped and fell down the stairs. Pt denies any fx, just very sore and bruised to side area. Pt lives alone in his apt, remains independent and able to complete self care, home management and meal prep. Daughter transports or he uses Uber. Pt uses no DME or in home care services. PCP is Greg and uses [facility] for rx needs. Addendum: 02/07/25 at 1522 by CHANDLER MEMBRENO Amended: Links added. Addendum: 02/07/25 at 1523 by CHANDLER TRINIDAD SS Pt gets $100 a month in food stamps
--- NOTE | 2025-02-07 15:25 | HMCIMG ---
EXAM: CT Head Without IV contrast. CLINICAL HISTORY: fall TECHNIQUE: Axial computed tomography images of the head/brain without intravenous contrast. COMPARISON: None provided. FINDINGS: BRAIN: No evidence of acute hemorrhage. No mass lesion. No CT evidence for acute territorial infarct. No midline shift or extra-axial collections. VENTRICLES: No hydrocephalus. ORBITS: The orbits are unremarkable. SINUSES AND MASTOIDS: The paranasal sinuses and mastoid air cells are clear. BONES: No fracture. SOFT TISSUES: Unremarkable. IMPRESSION: No acute intracranial abnormality. /[place]
--- NOTE | 2025-02-07 15:37 | HMCIMG ---
EXAM: CT Chest Without IV contrast. CLINICAL HISTORY: right sided rib pain TECHNIQUE: Axial computed tomography images of the chest without intravenous contrast. COMPARISON: None provided. FINDINGS: LUNGS: No pulmonary mass. Left lung base atelectasis versus scarring. Small left lateral lower lung pleural base pulmonary contusion not excluded. Mild right lung base linear atelectasis versus scarring. The lungs are otherwise clear. PLEURAL SPACES: No evidence of pneumothorax. No pleural effusion. HEART: No cardiomegaly. No significant pericardial effusion. Aortic heart valve. Marked descending coronary artery calcific atherosclerosis. LYMPH NODES: No lymphadenopathy is evident. UPPER ABDOMEN: There are a few gallstones within the gallbladder lumen. No pericholecystic edema or visible biliary ductal dilatation BONES: No acute osseous abnormality. Changes and median sternotomy. Anterior bridging osteophytes across the majority of the thoracic spine/thoracic spine DISH IMPRESSION: 1. No acute findings. 2. Left lung base atelectasis versus scarring. 3. Coronary artery calcific atherosclerosis. 4. Cholelithiasis. /[place]
[2025-02-07] MEDS: LIDOCAINE 5% TOPICAL PATCH TP ONE (19:02)
[2025-02-07] MEDS: FAMOTIDINE 20MG VIAL IV SCH (19:40)
--- NOTE | 2025-02-08 01:15 | NUR ---
PATIENT SLEEPING, NO DISTRESS NOTED.
[2025-02-08 06:15] VITALS: BP 121/82; PULSE 69; RESP 20; TEMP 98.5
--- NOTE | 2025-02-08 06:21 | NUR ---
home meds asked patient for his home meds. he said he is leaving AMA today and will not bring his home meds in.
--- NOTE | 2025-02-08 06:33 | HMCSR ---
APPROVED REPORT EXAM: Two-dimensional and M-mode echocardiogram with Doppler and color Doppler. Study Details: Hx: congestive heart failure TDS INDICATION ICD: Fall, Congestive heart failure 2D Dimensions RVDd4.0 cmLVEF(%)28.2 (>50%)LVED Vol(simp.)114.0 mL IVSd1.2 (0.7-1.1cm)FS(%)13 %LVES Vol(simp.)79.0 mL LVDd4.6 (3.8-5.6cm)LA (2D)4.1 (1.6-4.0cm)LVEF(%, simp.)31 % PWd1.1 (0.7-1.1cm)Ao Root(2D)4.2 (2.0-3.7cm)LA ESV INDEX (BP)32.04 mL/m2 IVSs1.2 cmIVC diam1.6 cm LVDs4.0 (2.5-4.0cm) PWs1.6 cm Deformation Strain Apical 4-9.8 % Apical 2-6.5 % Apical 3-11.1 % Global Strain-9.1 % Aortic Valve AoV Vmax3.1 m/Darlyn Peak GR39.2 mmHgLVOT Vmax1.5 m/s AoV VTI0.6 mAo Mean GR22.6 mmHgLVOT VTI0.25 m Mitral Valve MV E Cwiv384.9 cm/sDECEL Time86 ms TDI E/E' Qzmgvn58.4E/E' Szxonba99.0 Medial E' Peak V4.91 cm/sLateral E' Peak V6.58 cm/s Pulmonary Valve PV Vmax1.3 m/sPV VTI0.22 mPV Mean GR3.6 mmHg PV Peak GR6.7 mmHg Tricuspid Valve RAP (EST) 8 mmHgRVSP8.0 mmHg Left Ventricle The left ventricle is normal size. Severe inferior wall hypokinesis Severe apical hypokinesis Severe mid and distal anteroseptal hypokinesis Mild mid and distal anterior hypokinesis There is normal left ventricular wall thickness. LVEF at 30%. E/A flow is fused. Right Ventricle The right ventricle is normal size. The right ventricular systolic function is normal. Atria The left atrium size is normal. The right atrium size is normal. Aortic Valve Bioprosthetic aortic valve is present not well visualized No aortic regurgitation is present. There i s moderate valvular aortic stenosis. Highest mean aortic valve gradient is 22mmHg, highest pk gradien t 39mmHg. Mitral Valve The mitral valve is thickened. Mitral regurgitation is trace. There is no mitral valve stenosis. Tricuspid Valve The tricuspid valve is normal in structure. There is no tricuspid valve regurgitation noted. Pulmonic Valve The pulmonary valve is normal in structure. There is no pulmonic valvular regurgitation. Great Vessels The aortic root is normal in size. IVC is not well visualized. Pericardium There is no pericardial effusion. Other Information Quality : Technically difficult study due to body habitus. pt could not be placed onto left side due to pain Conclusion LVEF at 30%. Severe inferior wall hypokinesis Severe apical hypokinesis Severe mid and distal anteroseptal hypokinesis Bioprosthetic aortic valve is present not well visualized There is moderate valvular aortic stenosis. Highest mean aortic valve gradient is 22mmHg, highest pk gradient 39mmHg. No aortic regurgitation is present.
[2025-02-08 06:40] VITALS: O2SAT 94
[2025-02-08 07:08] LABS: IMMATURE GRANULOCYTE ABSOLUTE 0.02 K/uL (0-1); NUCLEATED RED BLOOD CELLS 0.0 % (0.0-0.19); PLATELET COUNT (AUTO) 244 K/uL (130-400); RED BLOOD CELL COUNT(AUTO) 4.06 MIL/uL (4.50-6.20); RED CELL DISTRIBUTION WIDTH 13.2 % (11.0-15.5); WHITE BLOOD COUNT (AUTO) 7.2 K/uL (4.8-10.8)
[2025-02-08 07:32] LABS: CREATININE 0.8 mg/dL (0.5-1.3); GLOMERULAR FILTR. RATE CALC 98.0 mL/min (>90); GLUCOSE,RANDOM 104.0 mg/dL (70-105); SODIUM SERUM 132.0 mmol/L (136-145); UREA NITROGEN, BLOOD 15.0 mg/dL (7-18)
[2025-02-08 08:00] VITALS: BP 113/74; PULSE 70; RESP 16; TEMP 98.4; O2SAT 93
--- NOTE | 2025-02-08 08:23 | EKG ---
[facility] Test Date: 2025-02-07 Test Time: 13:46:53 Pat Name: NELY TEMPLE Department: [facility] Room: 419 1 Gender: M Investigator Vice: [id number] : 1960 Requested By: MALOU MCCULLOUGH Order Number: [id number] Reading MD: Eduardo Myers Measurements Intervals Dickinson Rate: 74 P: 34 IA: 158 QRS: 40 QRSD: 94 T: 22 QT: 371 QTc: 413 Interpretive Statements Sinus rhythm Compared to ECG 02/07/2025 10:23:45 Left bundle-branch block no longer present Intraventricular conduction delay no longer present ST (T wave) deviation no longer present Electronically Signed On 02-10-2025 23:55:53 CDT by Eduardo Myers Please click the below link to view image of tracing.
[2025-02-08 12:00] VITALS: BP 152/74; PULSE 80; RESP 18; TEMP 98.4
[2025-02-08] MEDS ORDERED: ACET-2743 PO (13:45)
[2025-02-08] MEDS ORDERED: METO-391 PO (13:45)
[2025-02-08] MEDS ORDERED: ACET-2079 PO (14:23)
--- NOTE | 2025-02-08 15:20 | NUR ---
DISCHARGE EDUCATION GIVEN TO PATIENT REGARDING FOLLOW UP APPOINTMENTS. IV CATHETER REMOVED AND INTACT. PATIENT VERBALIZED UNDERSTANDING. PATIENT GOING DOWN VIA WHEELCHAIR TO PRIVATE CAR. NO FURTHER COMMENTS.
--- NOTE | 2025-02-08 17:58 | DS ---
Discharge Summary Hospital Course Summary: Patient is a 63-year-old male with a history of prostate cancer, hypertension, type 2 diabetes with circulatory manifestations, poor dentition with multiple caries, hyperlipidemia, and a bicuspid aortic valve with coronary disease is status post aortic valve replacement with a #27 [employer] biopros thesis and two-vessel bypass surgery with QUAN to the LAD and saphenous vein graft to the PDA on 05/28/2021 was noted to have a new murmur of aortic insufficiency 03/25/2023, patient patient had a redo of his aortic valve in [place] in 2023 who presented to the hospital status post fall. Patient states while climbing down stairs yesterday, he had a fall. He states the fall happened after he tripped on the steps. He denies losing consciousness during the event. He fell forward and hit his head and also hit the right side of his chest area. Since then he has noted pain in the right lateral chest wall area. Pain is worse with sitting up and moving. While patient is resting pain is controlled. He denies any midsternal chest pain, jaw pain, paresthesias to the arm, abdominal pain, nausea, vomiting, headache, cervical neck pain. Denied any upper or lower extremity weakness. Patient had a aortic valve surgery in [place] last year. His surgical course was complicated by NM and he needed ECMO support. He is currently being followed by Dr. Myers as outpatient. He did take his medications in the morning prior to coming to the hospital. Cardiology had been consulted for left bundle branch block. In review of office records, the last EKG on 11/10/2023 demonstrated normal sinus rhythm/first- degree AV block versus atrial flutter with a 3-1 bloc, LBBB, with T-wave inversions in lead 1, 2, aVL, and V6 reviewed by then adult live in caregiver Dr. Franc Mar. EKG on admission demonstrated normal sinus rhythm with a heart rate of 76 bpm, LBBB, TWI in leads 1, 2, aVL, V5, and V6. During the hospital stay the patient had a chest x-ray performed including the ribs which showed no visible acute rib fracture and no pneumothorax. We also had a chest CT performed which showed no acute findings, left lung base atelectasis versus scarring, Coronary artery calcific atherosclerosis and cholelithiasis. He had a head CT performed which showed no acute intracranial abnormality. His echo had an EF of 30% so we contacted Dr. Acuña who said that the patient has EF usually in the range of 30-35%. The patient insisted on getting discharged today. Patient was given pain medication and a patch which he said has helped him the with the pain and was able to finally sleep which he has not been able to since he fell. Patient able to sit comfortably without pain and move so we are discharging him. He has an outpatient appointment with Dr. Acuña on February 25. We encouraged him to continue with his home medication. Wine Steward/Stewardess(s): Cardiology - MARCUS SINGH MD, Eduardo Myers MD: In review of office records, the last EKG on 11/10/2023 demonstrated normal sinus rhythm/first- degree AV block versus atrial flutter with a 3-1 bloc, LBBB, with T-wave inversions in lead 1, 2, aVL, and V6 reviewed by then adult live in caregiver Dr. Franc Mar. EKG on admission demonstrated normal sinus rhythm with a heart rate of 76 bpm, LBBB, TWI in leads 1, 2, aVL, V5, and V6, relatively unchanged -No further cardiac workup -Follow up with Dr. Moise Myers, keep upcoming scheduled appointment. Procedure(s): [place] [address] [address] IMAGING REPORT Signed PATIENT: NELY TEMPLE MR#: [id number] : 1960 SEX: M AGE: 64 LOCATION: [facility] ORDER 1032 STATUS: REG ER REPORT#: [id number] SERVICE 1030 REASON: fall ORDERING PHYSICIAN: MALOU MCCULLOUGH MD PROCEDURE: RIB RT W C - RIBS UNI RT W PA CHEST 3+ VWS EXAM: CR right Rib, 5 View. CLINICAL HISTORY: fall COMPARISON: Radiograph dated September 30, 2023 FINDINGS: LUNGS: The visualized lungs appear essentially clear. Incidental calcified granuloma within the peripheral right midlung. Prior sternotomy. Aortic valve replacement. Heart size and pulmonary vessels are within normal limits. PLEURAL SPACES: No evidence of pneumothorax. No pleural effusion. BONES: No visible acute rib fracture. IMPRESSION: No visible acute rib fracture. No pneumothorax. /[place] DICTATED BY: DEDE VERDUGO Jr., MD DATE: 02/07/25 1200 ELECTRONICALLY SIGNED BY: DEDE VERDUGO Jr., MD DATE: 02/07/[address] [address] IMAGING REPORT Signed PATIENT: NELY TEMPLE MR#: [id number] : 1960 SEX: M AGE: 64 LOCATION: [facility] ORDER 1314 STATUS: ADM IN REPORT#: [id number] SERVICE 1310 REASON: right sided rib pain ORDERING PHYSICIAN: LEXY GRAHAM MD PROCEDURE: CHEST WO - CT CHEST W/O CONTRAST EXAM: CT Chest Without IV contrast. CLINICAL HISTORY: right sided rib pain TECHNIQUE: Axial computed tomography images of the chest without intravenous contrast. COMPARISON: None provided. FINDINGS: LUNGS: No pulmonary mass. Left lung base atelectasis versus scarring. Small left lateral lower lung pleural base pulmonary contusion not excluded. Mild right lung base linear atelectasis versus scarring. The lungs are otherwise clear. PLEURAL SPACES: No evidence of pneumothorax. No pleural effusion. HEART: No cardiomegaly. No significant pericardial effusion. Aortic heart valve. Marked descending coronary artery calcific atherosclerosis. LYMPH NODES: No lymphadenopathy is evident. UPPER ABDOMEN: There are a few gallstones within the gallbladder lumen. No pericholecystic edema or visible biliary ductal dilatation BONES: No acute osseous abnormality. Changes and median sternotomy. Anterior bridging osteophytes across the majority of the thoracic spine/thoracic spine DISH IMPRESSION: 1. No acute findings. 2. Left lung base atelectasis versus scarring. 3. Coronary artery calcific atherosclerosis. 4. Cholelithiasis. /[place] DICTATED BY: OLIVIA RAMOS MD DATE: 02/07/251635 ELECTRONICALLY SIGNED BY: OLIVIA RAMOS MD DATE: 02/07/251635 [place] [address] [address] IMAGING REPORT Signed PATIENT: NELY TEMPLE MR#: [id number] : 1960 SEX: M AGE: 64 LOCATION: [facility] ORDER 1314 STATUS: ADM IN [facility] - [facility] REPORT#: [id number] SERVICE 1310 REASON: history of chf, fall ORDERING PHYSICIAN: LEXY GRAHAM MD PROCEDURE: ECHO CMP - ECHO 2-D COMPLETE APPROVED REPORT EXAM: Two-dimensional and M-mode echocardiogram with Doppler and color Doppler. Study Details: Hx: congestive heart failure TDS INDICATION ICD: Fall, Congestive heart failure 2D Dimensions RVDd 4.0 cm LVEF(%) 28.2 (>50%) LVED Vol(simp.) 114.0 mL IVSd 1.2 (0.7-1.1cm) FS(%) 13 % LVES Vol(simp.) 79.0 mL LVDd 4.6 (3.8-5.6cm) LA (2D) 4.1 (1.6-4.0cm) LVEF(%, simp.) 31 % PWd 1.1 (0.7-1.1cm) Ao Root(2D) 4.2 (2.0-3.7cm) LA ESV INDEX (BP) 32.04 mL/m2 IVSs 1.2 cm IVC diam 1.6 cm LVDs 4.0 (2.5-4.0cm) PWs 1.6 cm Deformation Strain Apical 4 -9.8 % Apical 2 -6.5 % Apical 3 -11.1 % Global Strain -9.1 % Aortic Valve AoV Vmax 3.1 m/s Ao Peak GR 39.2 mmHg LVOT Vmax 1.5 m/s AoV VTI 0.6 m Ao Mean GR 22.6 mmHg LVOT VTI 0.25 m Mitral Valve MV E Vmax 124.9 cm/s DECEL Time 86 ms TDI E/E' Medial 25.4 E/E' Lateral 19.0 Medial E' Peak V 4.91 cm/s Lateral E' Peak V 6.58 cm/s Pulmonary Valve PV Vmax 1.3 m/s PV VTI 0.22 m PV Mean GR 3.6 mmHg PV Peak GR 6.7 mmHg Tricuspid Valve RAP (EST) 8 mmHg RVSP 8.0 mmHg Left Ventricle The left ventricle is normal size. Severe inferior wall hypokinesis Severe apical hypokinesis Severe mid and distal anteroseptal hypokinesis Mild mid and distal anterior hypokinesis There is normal left ventricular wall thickness. LVEF at 30%. E/A flow is fused. Right Ventricle The right ventricle is normal size. The right ventricular systolic function is normal. Atria The left atrium size is normal. The right atrium size is normal. Aortic Valve Bioprosthetic aortic valve is present not well visualized No aortic regurgitation is present. There is moderate valvular aortic stenosis. Highest mean aortic valve gradient is 22mmHg, highest pk gradient 39mmHg. Mitral Valve The mitral valve is thickened. Mitral regurgitation is trace. There is no mitral valve stenosis. Tricuspid Valve The tricuspid valve is normal in structure. There is no tricuspid valve regurgitation noted. Pulmonic Valve The pulmonary valve is normal in structure. There is no pulmonic valvular regurgitation. Great Vessels The aortic root is normal in size. IVC is not well visualized. Pericardium There is no pericardial effusion. Other Information Quality : Technically difficult study due to body habitus. pt could not be placed onto left side due to pain Conclusion LVEF at 30%. Severe inferior wall hypokinesis Severe apical hypokinesis Severe mid and distal anteroseptal hypokinesis Bioprosthetic aortic valve is present not well visualized There is moderate valvular aortic stenosis. Highest mean aortic valve gradient is 22mmHg, highest pk gradient 39mmHg. No aortic regurgitation is present. DICTATED BY: MARCUS SINGH MD DATE: 02/07/25 1610 ELECTRONICALLY SIGNED BY: MARCUS SINGH MD DATE: 02/08/25 0633 [place] [address] [place] [address] IMAGING REPORT Signed PATIENT: NELY TEMPLE MR#: [id number] : 1960 SEX: M AGE: 64 LOCATION: [facility] ORDER 144 STATUS: ADM IN REPORT#: [id number] SERVICE 144 REASON: fall ORDERING PHYSICIAN: LEXY GRAHAM MD PROCEDURE: HEAD WO - CT HEAD/BRAIN W/O CONTRAST EXAM: CT Head Without IV contrast. CLINICAL HISTORY: fall TECHNIQUE: Axial computed tomography images of the head/brain without intravenous contrast. COMPARISON: None provided. FINDINGS: BRAIN: No evidence of acute hemorrhage. No mass lesion. No CT evidence for acute territorial infarct. No midline shift or extra-axial collections. VENTRICLES: No hydrocephalus. ORBITS: The orbits are unremarkable. SINUSES AND MASTOIDS: The paranasal sinuses and mastoid air cells are clear. BONES: No fracture. SOFT TISSUES: Unremarkable. IMPRESSION: No acute intracranial abnormality. /[place] DICTATED BY: DDEE VERDUGO Jr., MD DATE: 02/07/251623 ELECTRONICALLY SIGNED BY: DEDE VERDUGO Jr., MD DATE: 02/07/251623 Assessment/Plan: ASSESSMENT: Mechanical fall POA Right-sided chest pain likely secondary to mechanical fall POA Abnormal EKG History of aortic valve replacement History of CAD status post CABG Hypertension Hyperlipidemia History of heart failure with preserved EF History of prostate cancer on chemotherapy Admission Date: 02/07/25 Discharge Date: 02/08/25 Disposition: Home Condition: Stable Activity: As tolerated Home medications: Continued Discharge medications: Acetaminophen with codeine 300 mg-30 mg p.o., acetaminophen 650 mg p.o. Follow-up appointment: Follow up with PCP within 2-3 days of discharge Follow up with Cardiology within 2 weeks of discharge We reinforced the importance of medication adherence and follow-up appointments. Amount of time spent: 25 minutes Discharge Instructions: Take medication as prescribed Call 911 or go to ER if you develop fever, severe abdominal pain or bloating, nausea or vomiting that does not improve, shortness of breath or chest pain Home Medications: Active Scripts Acetaminophen with Codeine (Acetaminophen-Cod #3 Tablet) 300 Mg-30 Mg Tablet, 1 TAB PO TIDP PRN for MODERATE PAIN (4-6) MDD 3 for 4 Days, #12 TAB Prov:JESUS MANUEL STARKS MD 02/08/25 Acetaminophen (Tylenol Extra Strength) 500 Mg Tablet, 650 MG PO AD, #30 TAB PRN Prov:ALAYNA MICHEL MD 02/08/25 Metoprolol Succinate (Metoprolol Succinate) 50 Mg Tab.er.24h, 25 MG PO DAILY, #30 TAB Prov:ALAYNA MICHEL MD 02/08/25 Reported Medications Valsartan (Valsartan) 40 Mg Tablet, 40 MG PO DAILY, TAB 09/28/23 Metformin HCl (Metformin HCl ER) 1,000 Mg Tab.er.24, 1000 MG PO BIDMEALS 09/28/23 Empagliflozin (Jardiance) 25 Mg Tablet, 25 MG PO DAILYBKFST, TAB 08/26/23 Multivitamin W-Minerals/Lutein (Centrum Silver Ultra Men's Tab) 300 Mcg-60 Mcg- 600 Mcg-300 Mcg Tablet, 1 EACH PO DAILY, TAB 05/27/23 Atorvastatin Calcium (LIPITOR) 40 Mg Tablet, 40 MG PO DAILY, TAB 05/19/21 Aspirin (ASPIRIN 81 MG ECTAB) 81 Mg Ectab, 81 MG PO DAILY, TAB.EC 05/19/21 Tamsulosin HCl (Flomax) 0.4 Mg Cap.er.24h, 0.4 MG PO DAILY, CAPSULE. 05/19/21 Discontinued Reported Medications Furosemide (Furosemide) 40 Mg Tablet, 40 MG PO DAILYDINNER, TAB 09/28/23 Furosemide (Furosemide) 40 Mg Tablet, 80 MG PO DAILY, TAB 09/28/23 Potassium Chloride (Klor-Con M20) 20 Meq Tab.er.prt, 20 MEQ PO DAILY 08/26/23 Bicalutamide (Bicalutamide) 50 Mg Tablet, 50 MG PO DAILY, TAB 05/27/21 New Medications: Acetaminophen (Tylenol Extra Strength) 500 Mg Tablet 650 MG PO AD, #30 TAB PRN Acetaminophen with Codeine (Acetaminophen-Cod #3 Tablet) 300 Mg-30 Mg Tablet 1 TAB PO TIDP PRN for MODERATE PAIN (4-6) MDD 3 for 4 Days, #12 TAB Changed Medications: Metoprolol Succinate (Metoprolol Succinate) 50 Mg Tab.er.24h 25 MG PO DAILY, #30 TAB (Changed from: 75 MG) Continued Medications: Aspirin (Aspirin 81 Mg Ectab) 81 Mg Ectab 81 MG PO DAILY, TAB.EC Atorvastatin Calcium (Lipitor) 40 Mg Tablet 40 MG PO DAILY, TAB Empagliflozin (Jardiance) 25 Mg Tablet 25 MG PO DAILYBKFST, TAB Metformin HCl (Metformin HCl ER) 1,000 Mg Tab.er.24 1000 MG PO BIDMEALS Multivitamin W-Minerals/Lutein (Centrum Silver Ultra Men's Tab) 300 Mcg-60 Mcg- 600 Mcg-300 Mcg Tablet 1 EACH PO DAILY, TAB Tamsulosin HCl (Flomax) 0.4 Mg Cap.er.24h 0.4 MG PO DAILY, CAPSULE. Valsartan (Valsartan) 40 Mg Tablet 40 MG PO DAILY, TAB Discontinued Medications: Bicalutamide (Bicalutamide) 50 Mg Tablet 50 MG PO DAILY, TAB Furosemide (Furosemide) 40 Mg Tablet 80 MG PO DAILY, TAB Furosemide (Furosemide) 40 Mg Tablet 40 MG PO DAILYDINNER, TAB Potassium Chloride (Klor-Con M20) 20 Meq Tab.er.prt 20 MEQ PO DAILY Time spent arranging discharge: 31-60 minutes ATTESTATION BY PHYSICIAN I have seen and examined the patient. I reviewed the documentation, medical decision making, and treatment plan as noted by the resident provider above. I agree with the findings and plan of care. Jesus Manuel Starks MD, ABHINAV MD Feb 08, 2025 17:58
== END 2025-02-08 15:45 | disposition home or self-care (01) ==
LOC: EDH 10:14 → EDHIP 13:10 → 4CH 02-08 06:07
PROVIDERS: ADMIT Internal Medicine; ATTEND Internal Medicine
DX: R07.89 Other chest pain (principal); R94.31 Abnormal electrocardiogram [ECG] [EKG]; I11.0 Hypertensive heart disease with heart failure; I50.32 Chronic diastolic (congestive) heart failure; E78.5 Hyperlipidemia, unspecified; I25.2 Old myocardial infarction; I44.7 Left bundle-branch block, unspecified; I35.0 Nonrheumatic aortic (valve) stenosis; I25.10 Atherosclerotic heart disease of native coronary artery without angina pectoris; I34.0 Nonrheumatic mitral (valve) insufficiency; E11.9 Type 2 diabetes mellitus without complications; Z95.1 Presence of aortocoronary bypass graft; Z85.46 Personal history of malignant neoplasm of prostate; Z79.84 Long term (current) use of oral hypoglycemic drugs; Z79.899 Other long term (current) drug therapy; W10.9XXA Fall (on) (from) unspecified stairs and steps, initial encounter; Y93.89 Activity, other specified; Y92.89 Other specified places as the place of occurrence of the external cause; Y99.8 Other external cause status
CPT/HCPCS: 96374; 96376; 96375; 99285; 83036; 84443; 84484 ×2; 80048 ×2; 85025 ×2; 85610; 85730; 82948 ×2; 81001; 36415 ×2; 71101; 70450; 71250; 93306; 93356; 93005 ×2; 83735; G0378 ×27; J3490; J2270 ×2